=== PATIENT | male | born 1950 | race Caucasian/White ===

== ENCOUNTER 2023-03-10 14:22 | Inpatient (IN) | payer MEDICARE ==
[~2023-03-10] VITALS: Ht 177.8 cm; Wt 83.6 kg
[2023-03-10] MEDS ORDERED: NS IV 1000 ML 1,000 ML IV STA ×2 (14:59→16:08)
[2023-03-10] MEDS ORDERED: ONDANSETRON 4 MG/2 ML (SDV) Z0FRAN IVP ONE (15:00)
--- NOTE | 2023-03-10 15:04 | ED Abdominal Pain ---
General Chief Complaint: Abdominal/GI Problems Stated Complaint: EPIGASTRIC/BACK PAIN; NAUSEA Nursing Triage Note: PT AMBULATE TO ROOM [facility] WITHOUT DIFFICULTY WITH C/O ABD PAIN AND BACK PAIN. Source of Information: Patient Exam Limitations: No Limitations History of Present Illness Date Seen by Provider: Mar 10, 2023 Time Seen by Provider: 14:45 Initial Comments 72-year-old male presents to the emergency room today for epigastric pain. He woke up with the pain at about 730 this morning described as stabbing with radiation to his mid back. He has never had similar pains in the past though has had a recent complicated medical history with multiple ureteral stones, stents and infections. He had his stent removed recently. He denies any fevers but has had chills. He had a single episode of nausea with vomiting this morning. He also states he had a loose stool which was green in color. He does not drink alcohol, denies any history of pancreatitis. At present his pain is a 3/10. No aggravating or alleviating factors. No changes in urine currently. No cough chest pain or shortness of breath. All other systems reviewed and negative except documented per HPI. Voice recognition software was used to help create this chart Allergies and Home Medications Allergies Coded Allergies: No Known Drug Allergies (Unverified , 03/10/23) Patient Home Medication List Home Medication List Reviewed: Yes Review of Systems Review of Systems Constitutional: see HPI Past Bptsvjl-Srcbrw-Oinlbh Hx Patient Social History Tobacco Use?: No Smoking Status: Never a Smoker Smokeless Tobacco Frequency: Never a User Use of E-Cig and/or Vaping dev: No Use of E-Cig and/or Vaping Kailash: Never a User Substance use?: No Alcohol Use?: No Pt feels they are or have been: No Physical Exam Vital Signs Vital Signs - First Documented 03/10/23 14:25 Temp 37.0 Pulse 99 Resp 16 B/P (MAP) 161/92 (115) O2 Delivery Room Air Capillary Refill : Less Than 3 Seconds Height/Weight/BMI Height: '" Weight: lbs. oz. kg; BMI Method: General Appearance: WD/WN, no apparent distress HEENT: normal ENT inspection, pharynx normal Neck: full range of motion, normal inspection Respiratory: chest non-tender, lungs clear, normal breath sounds, no res piratory distress, no accessory muscle use Cardiovascular: no murmur, tachycardia Gastrointestinal: normal bowel sounds, soft, no organomegaly, tenderness (Tenderness palpation the epigastric region with voluntary guarding. No rebound tenderness. No mass organomegaly. No skin changes) Extremities: normal range of motion, non-tender, normal inspection, no pedal edema, no calf tenderness, normal capillary refill Back: normal inspection, no CVA tenderness, no vertebral tenderness Neurologic/Psychiatric: alert, normal mood/affect, oriented x 3 Skin: normal color, warm/dry Progress/Results/Core Measures Results/Orders Lab Results Laboratory Tests Test 03/10/23 14:58 03/10/23 16:15 Range/Units White Blood Count 8.5 4.3-11.0 10^3/uL Red Blood Count 5.21 4.30-5.52 10^6/uL Hemoglobin 15.3 13.3-17.7 g/dL Hematocrit 45 40-54 % Mean Corpuscular Volume 87 80-99 fL Mean Corpuscular Hemoglobin 29 25-34 pg Mean Corpuscular Hemoglobin Concent 34 32-36 g/dL Red Cell Distribution Width 14.0 10.0-14.5 % Platelet Count 255 130-400 10^3/uL Mean Platelet Volume 9.4 9.0-12.2 fL Immature Granulocyte % (Auto) 0 % Neutrophils (%) (Auto) 73 42-75 % Lymphocytes (%) (Auto) 19 12-44 % Monocytes (%) (Auto) 6 0-12 % Eosinophils (%) (Auto) 1 0-10 % Basophils (%) (Auto) 1 0-10 % Neutrophils # (Auto) 6.2 1.8-7.8 10^3/uL Lymphocytes # (Auto) 1.6 1.0-4.0 10^3/uL Monocytes # (Auto) 0.5 0.0-1.0 10^3/uL Eosinophils # (Auto) 0.1 0.0-0.3 10^3/uL Basophils # (Auto) 0.1 0.0-0.1 10^3/uL Immature Granulocyte # (Auto) 0.0 0.0-0.1 10^3/uL Sodium Level 140 135-145 MMOL/L Potassium Level 4.2 3.6-5.0 MMOL/L Chloride Level 102 98-107 MMOL/L Carbon Dioxide Level 24 21-32 MMOL/L Anion Gap 14 5-14 MMOL/L Blood Urea Nitrogen 17 7-18 MG/DL Creatinine 0.89 0.60-1.30 MG/DL Estimat Glomerular Filtration Rate 91 BUN/Creatinine Ratio 19 Glucose Level 120 H 70-105 MG/DL Calcium Level 9.7 8.5-10.1 MG/DL Corrected Calcium 9.6 8.5-10.1 MG/DL Total Bilirubin 0.4 0.1-1.0 MG/DL Aspartate Amino Transf (AST/SGOT) 19 5-34 U/L Alanine Aminotransferase (ALT/SGPT) 17 0-55 U/L Alkaline Phosphatase 123 40-136 U/L Troponin I < 0.30 <0.30 NG/ML Total Protein 6.9 6.4-8.2 GM/DL Albumin 4.1 3.2-4.5 GM/DL Lipase > 3000 H 8-78 U/L Urine Color YELLOW Urine Clarity CLEAR Urine pH 6.5 5-9 Urine Specific [place] 1.020 1.016-1.022 Urine Protein NEGATIVE NEGATIVE Urine Glucose (UA) NEGATIVE NEGATIVE Urine Ketones 1+ H NEGATIVE Urine Nitrite NEGATIVE NEGATIVE Urine Bilirubin NEGATIVE NEGATIVE Urine Urobilinogen 0.2 < = 1.0 MG/DL Urine Leukocyte Esterase NEGATIVE NEGATIVE Urine RBC (Auto) TRACE-I H NEGATIVE Urine RBC 2-5 H /HPF Urine WBC 2-5 /HPF Urine Squamous Epithelial Cells RARE /HPF Urine Crystals NONE /LPF Urine Bacteria NEGATIVE /HPF Urine Casts NONE /LPF Urine Mucus MODERATE H /LPF Urine Culture Indicated NO My Orders Orders - HUEY MENJIVAR DO Cbc With Automated Diff (03/10/23 14:59) Comprehensive Metabolic Panel (03/10/23 14:59) Lipase (03/10/23 14:59) Ua Culture If Indicated (03/10/23 14:59) Troponin I Fs (03/10/23 14:59) Ekg Tracing (03/10/23 14:59) Ns Iv 1000 Ml (Sodium Chloride 0.9%) (03/10/23 14:59) Ondansetron Injection (Zofran Injectio (03/10/23 15:00) Chest 1 View Ap/Pa Only (03/10/23 15:17) Ct Abdomen/Pelvis W (03/10/23 16:06) Ns Iv 1000 Ml (Sodium Chloride 0.9%) (03/10/23 16:08) Fentanyl Injection (Fentanyl Injection (03/10/23 16:30) Iohexol Injection (Omnipaque 350 Mg/Ml 1 (03/10/23 16:30) Received Contrast (Hold Metformin- Contr (03/10/23 16:30) Ns (Ivpb) 100 Ml (Sodium Chloride 0.9% 1 (03/10/23 16:30) Medications Given in ED Current Medications Medications Dose Ordered Sig/Rylee Route Start Time Stop Time Status Last Admin Dose Admin Fentanyl Citrate 50 mcg ONCE ONCE IVP 03/10/23 16:30 03/10/23 16:31 DC 03/10/23 16:32 50 MCG Iohexol 100 ml ONCE ONCE IV 03/10/23 16:30 03/10/23 16:31 DC 03/10/23 16:30 80 ML Ondansetron HCl 8 mg ONCE ONCE IVP 03/10/23 15:00 03/10/23 15:02 DC 03/10/23 15:09 8 MG Sodium Chloride 100 ml ONCE ONCE IV 03/10/23 16:30 03/10/23 16:31 DC 03/10/23 16:30 100 ML Vital Signs/I&O 03/10/23 14:25 Temp 37.0 Pulse 99 Resp 16 B/P (MAP) 161/92 (115) O2 Delivery Room Air Blood Pressure Mean: 115 Initial ECG Comparisson: No Previous ECG Available Comment Sinus rhythm with a rate of 89 bpm. Normal intervals. Left axis deviation. T wave inversions in lead III. Prominent Q waves in lead III and aVF. No other ST or T wave abnormalities. No ectopy. No STEMI. Departure Communication (Admissions) Notified by lab that the patient's lipase was too high to read for our analyzer, had to be diluted. Started on IV fluids and offered pain medication, initially declined but later comes back in request something for pain. He has been given Zofran and has no more nausea. Spoke to Dr. Olivera and she requested CT scan prior to admission to rule out pseudocyst. CT scan is negative for pseudocyst. He will be transferred via private vehicle. Advised patient and his to not eat or drink anything and to present straight to [facility] [place] in [place]. They state understanding. Transferred in stable condition. 1600: Spoke to Dr Olivera, request CT scan to r/o psuedocyst. Pending at this time. Has had 1 L of IV fluids. Declined pain medicine. Will go ahead and started on another liter of IV fluids while awaiting the CT scan. Impression Primary Impression: Pancreatitis Qualified Codes: K85.90 - Acute pancreatitis without necrosis or infection, unspecified Disposition: 30 STILL A PATIENT Condition: Stable Departure-Patient Inst. Referrals: CHRIST BRADLEY APRN (PCP) Primary Care Physician [facility] (Family) Primary Care Physician HUEY MENJIVAR DO Mar 10, 2023 15:04
[2023-03-10 15:05] LABS: BASOPHILS # (AUTO) 0.1 10^3/uL (0.0-0.1); BASOPHILS % (AUTO) 1 % (0-10); EOSINOPHILS # (AUTO) 0.1 10^3/uL (0.0-0.3); EOSINOPHILS % (AUTO) 1 % (0-10); HEMATOCRIT 45 % (40-54); HEMOGLOBIN 15.3 g/dL (13.3-17.7); LYMPHOCYTES # (AUTO) 1.6 10^3/uL (1.0-4.0); LYMPHOCYTES % (AUTO) 19 % (12-44); MEAN CORPUSCULAR HEMOGLOBIN 29 pg (25-34); MEAN CORPUSCULAR HGB CONC 34 g/dL (32-36); MEAN CORPUSCULAR VOLUME 87 fL (80-99); MEAN PLATELET VOLUME 9.4 fL (9.0-12.2); MONOCYTES # (AUTO) 0.5 10^3/uL (0.0-1.0); MONOCYTES % (AUTO) 6 % (0-12); NEUTROPHILS # (AUTO) 6.2 10^3/uL (1.8-7.8); NEUTROPHILS % (AUTO) 73 % (42-75); PLATELET COUNT 255 10^3/uL (130-400); WHITE BLOOD COUNT 8.5 10^3/uL (4.3-11.0)
[2023-03-10 15:27] LABS: CHLORIDE 102 MMOL/L (98-107); POTASSIUM 4.2 MMOL/L (3.6-5.0); SODIUM 140 MMOL/L (135-145)
[2023-03-10 15:28] LABS: ALANINE AMINOTRANSFERASE 17 U/L (0-55); ALBUMIN 4.1 GM/DL (3.2-4.5); ALKALINE PHOSPHATASE 123 U/L (40-136); BILIRUBIN,TOTAL 0.4 MG/DL (0.1-1.0); BUN/CREATININE RATIO 19; CALCIUM 9.7 MG/DL (8.5-10.1); CARBON DIOXIDE 24 MMOL/L (21-32); CREATININE SERUM 0.89 MG/DL (0.60-1.30); GFR ESTIMATED 91; GLUCOSE 120 MG/DL (70-105); TOTAL PROTEIN 6.9 GM/DL (6.4-8.2)
[2023-03-10 16:16] LABS: LIPASE > 3000 U/L (8-78)
[2023-03-10] MEDS ORDERED: fentaNYL INJECTION 100 MCG/2 ML VIAL IVP ONE (16:30)
[2023-03-10] MEDS ORDERED: NS 100 ML (IVPB) BAG IV ONE (16:30)
[2023-03-10] MEDS ORDERED: IOHEXOL 350 MG/ML 100 ML (OMNIPAQUE 350) VIAL IV ONE (16:30)
[2023-03-10] MEDS ORDERED: HOLD METFORMIN - RECEIVED CONTRAST 20 ML VIAL IV SCH (16:30)
--- NOTE | 2023-03-10 16:43 | Diagnostic Imaging Report ---
INDICATION: Abdominal pain. TECHNIQUE: A frontal chest was obtained at 4:37 PM. FINDINGS: The heart and mediastinal silhouette are normal in appearance. There is some minimal bibasilar scarring or atelectasis. There is no consolidation, pneumothorax, or pleural fluid. IMPRESSION: Minimal bilateral scarring or atelectasis with no focal infiltrate, pneumothorax, or pleural fluid. Dictated by: Dictated on workstation # [id number]
[2023-03-10 16:50] LABS: BILIRUBIN,URINE NEGATIVE (NEGATIVE); CLARITY,URINE CLEAR; COLOR,URINE YELLOW; GLUCOSE, URINE (UA) NEGATIVE (NEGATIVE); KETONES,URINE 1+ (NEGATIVE); LEUKOCYTE ESTERASE ,URINE NEGATIVE (NEGATIVE); NITRITE,URINE NEGATIVE (NEGATIVE); PH,URINE 6.5 (5-9); PROTEIN,URINE NEGATIVE (NEGATIVE)
--- NOTE | 2023-03-10 16:54 | Diagnostic Imaging Report ---
INDICATION: Abdominal pain, back pain. TECHNIQUE: Multiple contiguous axial images were obtained through the abdomen and pelvis after administration of intravenous contrast. Auto Exposure Controls were utilized during the CT exam to meet ALARA standards for radiation dose reduction. All CT scans use one or more of the following dose optimizing techniques: automated exposure control, MA and/or KvP adjustment based on patient size and exam type or iterative reconstruction. COMPARISON: There is no prior study for comparison. FINDINGS: The visualized portions of the lung bases show no infiltrate. There is a small pulmonary nodule in the left lower lobe near the aorta, measuring about 8 mm. There is no pleural fluid or free intraperitoneal air. There are diffuse degenerative changes in the lumbar spine, most prominent at L2-L3 with no erosive bony lesion. The liver shows a small cyst in the right lobe superiorly and a small cyst in the left lobe. There is no suspicious liver lesion. The gallbladder appears unremarkable. The spleen appears unremarkable. The pancreas shows some prominence of the pancreatic duct down to the region of the pancreatic head. There is some ill-defined low-density change in the pancreatic head which may represent mild pancreatitis. There is no biliary dilatation. There is a calcification in the pancreatic head which may represent a ductal stone. There are bilateral benign-appearing renal cysts as well as nonocclusive stones in the right kidney. There is bilateral adrenal thickening with nodules on both sides, the left-sided nodule measured about 2.4 x 1.6 cm and the right measured about 1.8 x 2.1 cm. There is no retroperitoneal mass or adenopathy. There is atherosclerotic change of the aorta with abdominal aortic aneurysm, nonruptured, measuring about 3.7 x 3.4 cm. There is no pelvic mass or free fluid. There is some prostatic enlargement with bladder wall thickening. IMPRESSION: There are bilateral renal cysts and small cysts in the liver. There are bilateral adrenal nodules which may represent adenomas, consider follow-up to exclude growth. There is prominence of the pancreatic duct with possible pancreatic duct stone, consider MRCP for further evaluation. There is some ill-defined hypodensity in the pancreatic head which may represent early inflammatory change. There is a nonruptured abdominal aortic aneurysm measuring 3.7 cm in greatest diameter. There are degenerative changes in the lumbar spine. There is an 8 mm pulmonary nodule in the left lower lobe, per Fleischner criteria would recommend three-month follow-up. Dictated by: Dictated on workstation # [id number]
[2023-03-10 16:56] LABS: BACTERIA,URINE NEGATIVE /HPF; SQUAMOUS EPITHELIAL CELL,UR RARE /HPF
[2023-03-10 18:11] VITALS: BP 162/87
[2023-03-10] MEDS ORDERED: ONDANSETRON 4 MG/2 ML (SDV) Z0FRAN IV PRN (18:15)
[2023-03-10] MEDS ORDERED: LACTULOSE SYRUP 10GM/15ML 30ML UDC PO PRN (18:15)
[2023-03-10] MEDS ORDERED: diphenhydrAMINE INJ 50 MG/ML VIAL IVP PRN (18:15)
[2023-03-10] MEDS ORDERED: ONDANSETRON 4 MG (ZOFRAN) ORAL DISSOLVE TAB PO PRN (18:15)
[2023-03-10] MEDS ORDERED: MELATONIN 3 MG TABLET PO PRN (18:15)
[2023-03-10] MEDS ORDERED: BISACODYL 10 MG SUPPOSITORY PR PRN (18:15)
[2023-03-10] MEDS ORDERED: LORazepam 0.5 MG TABLET PO PRN (18:15)
[2023-03-10] MEDS ORDERED: polyethylene glycoL POWDER 17 GM (MIRALAX) PACK PO PRN (18:15)
[2023-03-10] MEDS ORDERED: ANTACID SUSP 30 ML UDC (MYLANTA) PO PRN (18:15)
[2023-03-10] MEDS ORDERED: diphenhydrAMINE 25 MG TABLET PO PRN (18:15)
[2023-03-10] MEDS ORDERED: HYDROmorphone INJECTION 2 MG/ML VIAL IV PRN ×2 (18:15→20:15)
[2023-03-10] MEDS: ENOXAPARIN 40 MG/0.4 ML SYRINGE SC SCH (18:50)
[2023-03-10] MEDS: NS IV 1000 ML 1,000 ML IV SCH (18:53)
--- NOTE | 2023-03-10 19:04 | History & Physical ---
History of Present Illness HPI/Chief Complaint Chief complaint: Acute abdominal pain due to acute pancreatitis HPI: This is a 72-year-old male who presented to the [facility] ER with acute abdominal pain found to have acute pancreatitis. CT scan revealed possible stone but needs MRCP to fully evaluate. Currently his pain is 6/10. at the bedside. He is a nondrinker of alcohol and he does not smoke. He does have a gallbladder. Pain medication will be given along with IV fluids and I have consulted Dr. Smith. To note he recently had multiple kidney stones requiring urology intervention at [facility] with stent placement which was just removed last week. Source: patient, family, RN/MD, old records Exam Limitations: no limitations Date Seen 03/10/23 Time Seen by a Provider: 19:00 Attending Physician Tayler Xie Aprn PCP Admitting Physician: Ana Olivera DO Attending Physician: Ana Olivera DO Referring Physician Date of Admission Mar 10, 2023 at 18:00 Home Medications & Allergies Home Medications Reviewed patient Home Medication Reconciliation performed by pharmacy medication reconciliations electrical laboratory technician and/or nursing. Patients Allergies have been reviewed. Allergies Allergies Coded Allergies No Known Drug Allergies (Unverified03/10/23) Past Uagaqdy-Cgitkm-Cttqqv Hx Past Med/Social Hx: Reviewed Nursing Past Med/Soc Hx, Reviewed and Corrections made Patient Social History Marrital Status: Employed/Student: retired Alcohol Use: Denies Use Smoking Status: Former Smoker Recent Foreign Travel: No Contact w/other who traveled: No Past Medical History Genitourinary: Kidney Stones Review of Systems Constitutional: see HPI, malaise, weakness Gastrointestinal: abdominal pain, loss of appetite, nausea, vomiting Physical Exam Physical Exam Vital Signs Vital Signs - First Documented 03/10/23 03/10/23 03/10/23 14:25 17:08 19:07 Temp 37.0 Pulse 99 Resp 16 B/P (MAP) 161/92 (115) Pulse Ox 97 O2 Delivery Room Air FiO2 21 Capillary Refill : Less Than 3 Seconds Height, Weight, BMI Height: '" Weight: lbs. oz. kg; 25.30 BMI Method: General Appearance: WD/WN, Anxious, Mild Distress Eyes: Bilateral Eye Normal Inspection, Bilateral Eye PERRL HEENT: PERRL/EOMI, Normal ENT Inspection, Pharynx Normal Neck: Full Range of Motion, Normal Inspection, Non Tender, Supple, Carotid Brui t Respiratory: Chest Non Tender, Lungs Clear, Normal Breath Sounds, No Accessory Muscle Use, No Respiratory Distress Cardiovascular: Regular Rate, Rhythm, No Edema, No Gallop, No JVD, No Murmur, Normal Peripheral Pulses Gastrointestinal: Normal Bowel Sounds, No Organomegaly, No Pulsatile Mass, Soft, Tenderness Back: Normal Inspection, No CVA Tenderness, No Vertebral Tenderness Extremity: Normal Capillary Refill, Normal Inspection, Normal Range of Motion, Non Tender, No Calf Tenderness, No Pedal Edema Neurologic/Psychiatric: Alert, Oriented x3, No Motor/Sensory Deficits, Normal Mood/Affect Skin: Normal Color, Warm/Dry Lymphatic: No Adenopathy Results Results/Procedures Labs Laboratory Tests 03/10/23 14:58 03/11/23 05:10 Patient resulted labs reviewed. Assessment/Plan Admission Diagnosis Assessment: Acute pancreatitis Abdominal pain Recent kidney stone stent placement and removal Plan: Consult Dr. Smith PPI Antiemetics Pain meds Abdominal ultrasound MRCP Admission Status: Observation ANA OLIVERA DO Mar 10, 2023 19:04
[2023-03-10 19:07] VITALS: BP 162/87
[2023-03-10] MEDS ORDERED: PANTOPRAZOLE 40 MG (PROTONIX) VIAL IV NR (19:30)
[2023-03-10] MEDS: oxyCODONE IMMEDIATE RELEASE 5 MG TABLET PO PRN (19:39)
[2023-03-10] MEDS: ACETAMINOPHEN 325 MG TABLET PO PRN (19:40)
[2023-03-10 20:00] VITALS: BP 175/89
[2023-03-10] MEDS: DOCUSATE SODIUM 100 MG CAPSULE PO SCH (20:56)
[2023-03-10] MEDS: inSUlin ASPART 1 UNIT/0.01 ML (PER UNIT) SC SCH (20:57)
[2023-03-10 23:24] VITALS: BP 151/72
[2023-03-11] MEDS: oxyCODONE IMMEDIATE RELEASE 5 MG TABLET PO PRN (02:47)
[2023-03-11] MEDS: ACETAMINOPHEN 325 MG TABLET PO PRN (02:48)
[2023-03-11] MEDS: NS IV 1000 ML 1,000 ML IV SCH ×5 (02:48→19:50)
[2023-03-11 03:53] VITALS: BP 123/65
[2023-03-11] MEDS: inSUlin ASPART 1 UNIT/0.01 ML (PER UNIT) SC SCH ×4 (05:28→21:20)
[2023-03-11 05:31] LABS: BASOPHILS # (AUTO) 0.1 10^3/uL (0.0-0.1); BASOPHILS % (AUTO) 1 % (0-10); EOSINOPHILS # (AUTO) 0.2 10^3/uL (0.0-0.3); EOSINOPHILS % (AUTO) 2 % (0-10); HEMATOCRIT 39 % (40-54); HEMOGLOBIN 12.9 g/dL (13.3-17.7); LYMPHOCYTES # (AUTO) 1.6 10^3/uL (1.0-4.0); LYMPHOCYTES % (AUTO) 19 % (12-44); MEAN CORPUSCULAR HEMOGLOBIN 29 pg (25-34); MEAN CORPUSCULAR HGB CONC 33 g/dL (32-36); MEAN CORPUSCULAR VOLUME 89 fL (80-99); MEAN PLATELET VOLUME 10.1 fL (9.0-12.2); MONOCYTES # (AUTO) 0.7 10^3/uL (0.0-1.0); MONOCYTES % (AUTO) 8 % (0-12); NEUTROPHILS # (AUTO) 5.7 10^3/uL (1.8-7.8); NEUTROPHILS % (AUTO) 70 % (42-75); PLATELET COUNT 219 10^3/uL (130-400); WHITE BLOOD COUNT 8.1 10^3/uL (4.3-11.0)
[2023-03-11 05:59] LABS: ALBUMIN 3.4 GM/DL (3.2-4.5); BILIRUBIN,TOTAL 0.7 MG/DL (0.1-1.0); CALCIUM 8.5 MG/DL (8.5-10.1); CREATININE SERUM 0.78 MG/DL (0.60-1.30); POTASSIUM 3.6 MMOL/L (3.6-5.0); TOTAL PROTEIN 5.7 GM/DL (6.4-8.2)
[2023-03-11 07:20] VITALS: BP 125/70
--- NOTE | 2023-03-11 07:55 | Consultation - Surgery ---
LIA GRACE 03/11/23 0755: History of Present Illness History of Present Illness Patient Consulted On(dago/time) 03/11/23 07:53 Time Seen by Provider: 08:13 History of Present Illness 72 M px to the clinic for stomach and back pain. He states that he has been intermittently nauseous since last night, but at the moment he feels pretty good. He had one episode of vomiting yesterday around noon. He denies having blood in his vomit. He said it was a clear/white liquid and some chunks from his breakfast sandwiches. He denies any green or brown color in his vomit. His stomach pain woke him up yesterday around 7:30 am. It was in his RUQ and LUQ. The pain was not sharp pain, it was described as a discomfort, aching feeling. When he came into the clinic he would rate the pain as a 7/10, but currently he is in no pain. The stomach pain yesterday would radiate to the middle of his back. He is currently hungry. His last meal was mid-morning yesterday, two little breakfast sandwiches. He has not ate since being in the hospital. He denies having similar episodes like this before. He denies any previous episodes of pancreatitis. He states he drinks zero alcohol. He is a former smoker, he quit last november. He would smoke less than a pack a day for 50 years. His gallblader and appendix are in tact. He denies having a past EGD. He has never had a colonoscopy. He has never had a HIDA scan. He had an ultrasound performed this morning around 8:00am. Pt denies having any gallbladder or pancreatic problems in the past. His only home medication is Flomax, he is not sure the dosage but he takes one pill a day. He started taking this medication when his kidney problems started a few months back. He was started on this in the ED at [facility] in [place] and has been taking it since. Pt states that he had a ureter stent placed 7 weeks ago at [facility]. Pt states that he had a shockwave lithotrypsin to break up one big kidney stone 3-4 weeks ago at [facility]. He denies any other procedures or surgeries performed. Allergies and Home Medications Allergies Coded Allergies: Penicillins (Verified Allergy, Unknown, 03/11/23) Mother and Father were allergic to it. He states he has not had it since a child due to the adverse rxn Past Ygwttoc-Ijeiya-Eihjrz Hx Patient Social History Smoking Status: Former Smoker (3/4 a pack for 50 years. Quit in November,.) Type Used: Cigarettes 2nd Hand Smoke Exposure: No Recent Hopitalizations: Yes (2 kidney procedures in the last two months.) Alcohol Use?: No Surgeries History of Surgeries: Yes (ureter stent placed, 2022) Respiratory History of Respiratory Disorde: No Cardiovascular History of Cardiac Disorders: No Neurological History of Neurological Disord: No Reproductive System Hx Reproductive Disorders: No Sexually Transmitted Disease: No HIV/AIDS: No Genitourinary History of Genitourinary Disor: Yes Genitourinary Disorders: Kidney Stones Gastrointestinal History of Gastrointestinal Di: No Musculoskeletal History of Musculoskeletal Dis: No Endocrine History of Endocrine Disorders: No HEENT History of HEENT Disorders: No Cancer History of Cancer: No Review of Systems-General Constitutional: No chills; dizziness (intermittently when laying down, right before falling asleep); No fever, No weakness, No weight gain, No weight loss EENTM: No hearing loss, No ear pain, No blurred vision, No double vision, No eye pain, No vision loss Respiratory: cough, phlegm; No short of breath, No wheezing Cardiovascular: No chest pain, No edema, No palpitations Gastrointestinal: abdominal pain (RUQ, LUQ), constipation; No diarrhea, No dysphagia, No heartburn, No jaundice, No loss of appetite; nausea; No vomiting Genitourinary: No dysuria, No frequency, No hesitancy, No incontinence Psychiatric/Neurological: Denies Headache, Denies Numbness, Denies Tingling, Denies Tremors Physical Exam-General Problems Physical Exam Vital Signs Vital Signs - First Documented 03/10/23 03/10/23 03/10/23 14:25 17:08 19:07 Temp 37.0 Pulse 99 Resp 16 B/P (MAP) 161/92 (115) Pulse Ox 97 O2 Delivery Room Air FiO2 21 Capillary Refill : Less Than 3 Seconds General Appearance: no apparent distress Eyes: Bilateral Eye PERRL, Bilateral Eye EOMI HEENT: No scleral icterus (R), No scleral icterus (L), No photophobia Respiratory: chest non-tender, lungs clear, normal breath sounds, no respiratory distress Cardiovascular: regular rate, rhythm, no murmur Peripheral Pulses: 2+ Carotid (R), 2+ Carotid (L), 2+ Dorsalis Pedis (R), 2+ Left Dors-Pedis (L), 2+ Radial Pulses (R), 2+ Radial Pulses (L) Gastrointestinal: non tender, soft, abnormal bowel sounds (All 4 Qs have hyperactive sounds); No guarding, No rebound, No tenderness Neurologic/Psychiatric: no motor/sensory deficits, alert, normal mood/affect, oriented x 3 Skin: normal color, warm/dry Data Review Labs Laboratory Tests 03/10/23 14:58: White Blood Count 8.5, Red Blood Count 5.21, Hemoglobin 15.3, Hematocrit 45, Mean Corpuscular Volume 87, Mean Corpuscular Hemoglobin 29, Mean Corpuscular Hemoglobin Concent 34, Red Cell Distribution Width 14.0, Platelet Count 255, Mean Platelet Volume 9.4, Immature Granulocyte % (Auto) 0, Neutrophils (%) (Auto) 73, Lymphocytes (%) (Auto) 19, Monocytes (%) (Auto) 6, Eosinophils (%) (Auto) 1, Basophils (%) (Auto) 1, Neutrophils # (Auto) 6.2, Lymphocytes # (Auto) 1.6, Monocytes # (Auto) 0.5, Eosinophils # (Auto) 0.1, Basophils # (Auto) 0.1, Immature Granulocyte # (Auto) 0.0, Sodium Level 140, Potassium Level 4.2, Chloride Level 102, Carbon Dioxide Level 24, Anion Gap 14, Blood Urea Nitrogen 17, Creatinine 0.89, Estimat Glomerular Filtration Rate 91, BUN/Creatinine Ratio 19, Glucose Level 120H, Calcium Level 9.7, Corrected Calcium 9.6, Total Bilirubin 0.4, Aspartate Amino Transf (AST/SGOT) 19, Alanine Aminotransferase (ALT/SGPT) 17, Alkaline Phosphatase 123, Troponin I < 0.30, Total Protein 6.9, Albumin 4.1, Lipase > 3000H 03/10/23 16:15: Urine Color YELLOW, Urine Clarity CLEAR, Urine pH 6.5, Urine Specific [place] 1.020, Urine Protein NEGATIVE, Urine Glucose (UA) NEGATIVE, Urine Ketones 1+H, Urine Nitrite NEGATIVE, Urine Bilirubin NEGATIVE, Urine Urobilinogen 0.2, Urine Leukocyte Esterase NEGATIVE, Urine RBC (Auto) TRACE-IH, Urine RBC 2-5H, Urine WBC 2-5, Urine Squamous Epithelial Cells RARE, Urine Crystals NONE, Urine Bacteria NEGATIVE, Urine Casts NONE, Urine Mucus MODERATEH, Urine Culture Indicated NO 03/10/23 20:23: Glucometer 97 03/11/23 05:10: White Blood Count 8.1, Red Blood Count 4.40, Hemoglobin 12.9L, Hematocrit 39L, Mean Corpuscular Volume 89, Mean Corpuscular Hemoglobin 29, Mean Corpuscular Hemoglobin Concent 33, Red Cell Distribution Width 14.2, Platelet Count 219, Mean Platelet Volume 10.1, Immature Granulocyte % (Auto) 0, Neutrophils (%) (Auto) 70, Lymphocytes (%) (Auto) 19, Monocytes (%) (Auto) 8, Eosinophils (%) (Auto) 2, Basophils (%) (Auto) 1, Neutrophils # (Auto) 5.7, Lymphocytes # (Auto) 1.6, Monocytes # (Auto) 0.7, Eosinophils # (Auto) 0.2, Basophils # (Auto) 0.1, Immature Granulocyte # (Auto) 0.0, Sodium Level 139, Potassium Level 3.6, Chloride Level 109H, Carbon Dioxide Level 23, Anion Gap 7, Blood Urea Nitrogen 15, Creatinine 0.78, Estimat Glomerular Filtration Rate 95, BUN/Creatinine Ratio 19, Glucose Level 89, Calcium Level 8.5, Corrected Calcium 9.0, Total Bilirubin 0.7, Aspartate Amino Transf (AST/SGOT) 14, Alanine Aminotransferase (ALT/SGPT) 14, Alkaline Phosphatase 84, Total Protein 5.7L, Albumin 3.4, Lipase 1906H 03/11/23 05:16: Glucometer 92 Radiology Date of Exam:03/10/23 CT ABDOMEN/PELVIS W INDICATION: Abdominal pain, back pain. TECHNIQUE: Multiple contiguous axial images were obtained through the abdomen and pelvis after administration of intravenous contrast. Auto Exposure Controls were utilized during the CT exam to meet ALARA standards for radiation dose reduction. All CT scans use one or more of the following dose optimizing techniques: automated exposure control, MA and/or KvP adjustment based on patient size and exam type or iterative reconstruction. COMPARISON: There is no prior study for comparison. FINDINGS: The visualized portions of the lung bases show no infiltrate. There is a small pulmonary nodule in the left lower lobe near the aorta, measuring about 8 mm. There is no pleural fluid or free intraperitoneal air. There are diffuse degenerative changes in the lumbar spine, most prominent at L2-L3 with no erosive bony lesion. The liver shows a small cyst in the right lobe superiorly and a small cyst in the left lobe. There is no suspicious liver lesion. The gallbladder appears unremarkable. The spleen appears unremarkable. The pancreas shows some prominence of the pancreatic duct down to the region of the pancreatic head. There is some ill-defined low-density change in the pancreatic head which may represent mild pancreatitis. There is no biliary dilatation. There is a calcification in the pancreatic head which may represent a ductal stone. There are bilateral benign-appearing renal cysts as well as nonocclusive stones in the right kidney. There is bilateral adrenal thickening with nodules on both sides, the left-sided nodule measured about 2.4 x 1.6 cm and the right measured about 1.8 x 2.1 cm. There is no retroperitoneal mass or adenopathy. There is atherosclerotic change of the aorta with abdominal aortic aneurysm, nonruptured, measuring about 3.7 x 3.4 cm. There is no pelvic mass or free fluid. There is some prostatic enlargement with bladder wall thickening. IMPRESSION: There are bilateral renal cysts and small cysts in the liver. There are bilateral adrenal nodules which may represent adenomas, consider follow-up to exclude growth. There is prominence of the pancreatic duct with possible pancreatic duct stone, consider MRCP for further evaluation. There is some ill-defined hypodensity in the pancreatic head which may represent early inflammatory change. There is a nonruptured abdominal aortic aneurysm measuring 3.7 cm in greatest diameter. There are degenerative changes in the lumbar spine. There is an 8 mm pulmonary nodule in the left lower lobe, per Fleischner criteria would recommend three-month follow-up. Assessment/Plan Assessment/Plan Assessment/Plan Assessment; Acute Pancreatitis History of Kidney Stones Former Smoker Plan; Will discuss having MRCP performed, pending on US results. Will continue IV fluids and continue being NPO. Pts lipase is trending downwards, will continue to monitor that. ZULEYKA JAMES DO 03/11/23 1156: History of Present Illness History of Present Illness Time Seen by Provider: 11:17 History of Present Illness Surgery asked to consult regarding Acute Pancreatitis. HPI per ED: 72-year-old male presents to the emergency room today for epigastric pain. He woke up with the pain at about 730 this morning described as stabbing with radiation to his mid back. He has never had similar pains in the past though has had a recent complicated medical history with multiple ureteral stones, stents and infections. He had his stent removed recently. He denies any fevers but has had chills. He had a single episode of nausea with vomiting this morning. He also states he had a loose stool which was green in color. He does not drink alcohol, denies any history of pancreatitis. At present his pain is a 3/10. No aggravating or alleviating factors. No changes in urine currently. No cough chest pain or shortness of breath. When I spoke to pt this morning he was not in pain and wanted to eat. He stated he has never had any RUQ pain or abdominal pain; nothing resembling previous gallbladder attacks. He described the pain as sharp, stabbing that went right through to his back. Allergies and Home Medications Allergies Coded Allergies: Penicillins (Verified Allergy, Unknown, 03/11/23) Mother and Father were allergic to it. He states he has not had it since a child due to the adverse rxn Patient Home Medication List Home Medication List Reviewed: Yes Past Zhpbmhq-Vgexdw-Khnzut Hx Patient Social History Smoking Status: Former Smoker (3/4 a pack for 50 years. Quit in November,.) Type Used: Cigarettes 2nd Hand Smoke Exposure: No Recent Hopitalizations: Yes (2 kidney procedures in the last two months.) Alcohol Use?: No Surgeries History of Surgeries: Yes (ureter stent placed, 2022) Respiratory History of Respiratory Disorde: No Cardiovascular History of Cardiac Disorders: No Neurological History of Neurological Disord: No Reproductive System Hx Reproductive Disorders: No Sexually Transmitted Disease: No HIV/AIDS: No Genitourinary History of Genitourinary Disor: Yes Genitourinary Disorders: Kidney Stones Gastrointestinal History of Gastrointestinal Di: No Musculoskeletal History of Musculoskeletal Dis: No Endocrine History of Endocrine Disorders: No HEENT History of HEENT Disorders: No Cancer History of Cancer: No Psychosocial History of Psychiatric Problem: No Integumentary History of Skin or Integumenta: No Family Medical History Significant Family History: Other Conditions/Hx (Denied either parent had DM) Review of Systems-General Constitutional: No chills; dizziness (intermittently when laying down, right before falling asleep); No fever, No weakness, No weight gain, No weight loss EENTM: No hearing loss, No blurred vision, No double vision, No eye pain, No vision loss Respiratory: cough, phlegm; No short of breath, No wheezing Cardiovascular: No chest pain, No edema, No palpitations Gastrointestinal: abdominal pain (RUQ, LUQ), constipation; No diarrhea, No dysphagia, No heartburn, No jaundice, No loss of appetite; nausea, vomiting Genitourinary: No dysuria, No frequency, No hematuria, No incontinence Musculoskeletal: No joint pain, No joint swelling Skin: No change in color, No change in hair/nails Psychiatric/Neurological: Denies Headache, Denies Numbness, Denies Tingling, D enies Tremors Physical Exam-General Problems Physical Exam General Appearance: WD/WN, no apparent distress Eyes: Bilateral Eye PERRL, Bilateral Eye EOMI HEENT: pharynx normal; No scleral icterus (R), No scleral icterus (L), No photophobia Neck: non-tender, supple Respiratory: lungs clear, normal breath sounds, no respiratory distress, no accessory muscle use Cardiovascular: regular rate, rhythm, no murmur Gastrointestinal: non tender, soft, abnormal bowel sounds (All 4 Qs have hyperactive sounds); No guarding, No rebound; hernia (incarcerated umbilical hernia (small amount of fat - pushes in, but comes right back out)) Rectal: deferred Back: no CVA tenderness, no vertebral tenderness Extremities: no pedal edema, no calf tenderness, normal capillary refill Neurologic/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 TECHNIQUE: Multiple realtime grayscale images were obtained over the abdomen in various projections. INDICATION: Abdominal pain. COMPARISON: CT abdomen and pelvis of 03/10/2023. FINDINGS: The liver is normal in size and echogenicity. There is no focal hepatic mass. The main portal vein is patent with antegrade flow. The gallbladder is distended without gallstones, wall thickening, or pericholecystic fluid. The common bile duct measures up to 0.5 cm in diameter. No intrahepatic biliary dilation. The visualized portions of the pancreas are normal. Portions of the head and tail are obscured by overlying bowel gas. The right kidney is normal in size. No hydronephrosis, shadowing calculi, or suspicious mass lesion. Simple cyst in the right kidney is stable. Infrarenal abdominal aortic aneurysm measuring 2.3 cm is better seen on yesterday's CT. IMPRESSION: 1. No cholelithiasis or biliary obstruction. 2. No common bile duct stone by ultrasound. 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 Olivera regarding this case and went over the films (US and CT) myself. I don't see any stones in the gallbladder on either radiology exam; will wait for reading from MRCP. Pt will need increased IV fluids and continue being NPO. Pts lipase is trending downwards, will continue to monitor that. I talked to pt about normal management of the Pancreatitis; first is NPO and IV fluids, next possible Lap Celina with IOC and he will definitely need an ERCP. I told him I could see the stone blocking his pancreatic duct and the fact that the duct is very dilated; normally not seen except with chronic pancreatitis. We talked about the fact that he doesn't need gallbladder removal right away (if ever) because there aren't any stones in the gallbladder that could cause another blockage. However, that doesn't mean that he won't develop another stone in the gallbladder in the future. We will discuss this more as an outpt. He will need to wait until the Lipase is almost normal and then will need to be sent for ERCP. I had a hard time seeing the stone on MRCP; await final reading. I explained to him what an ERCP entailed and talked about the fact that he will need a GI specialist to do it. All questions answered to his satisfaction. Supervisory-Addendum Brief Verification & Attestation Participated in pt care: history, MDM, physical Personally performed: exam, history, MDM, supervision of care Care discussed with: Medical Student Procedures: n/a Verification and Attestation of Medical Student E/M Service A medical student performed and documented this service. I then reviewed and verified all information documented by the medical student and made modifications to such information, when appropriate. I personally performed a physical exam, medical decision making and then discussed any differences between the notes and made revisions as necessary to create one note. Zuleyka James , 03/11/23 , 12:03 LIA GRACE Mar 11, 2023 07:55 ZULEYKA JAMES DO Mar 11, 2023 11:56
[2023-03-11] MEDS: DOCUSATE SODIUM 100 MG CAPSULE PO SCH ×2 (08:30→19:49)
[2023-03-11] MEDS: PANTOPRAZOLE 40 MG (PROTONIX) VIAL IV SCH (08:30)
--- NOTE | 2023-03-11 10:21 | Progress Note ---
RENETTA BREWER 03/11/23 1021: Subjective Date Seen by a Provider: Mar 11, 2023 Time Seen by a Provider: 10:00 Subjective/Events-last exam CC: Abdominal pain HPI: 72-year-old male presented with acute abdominal pain and was found to have acute pancreatitis. He experienced stomach pain that woke him up at 7:30 am yesterday and described it as achey and uncomfortable. Pain was in RUQ & LUQ and radiated to his back. He was intermittently nauseous, but is currently fine and having no pain or nausea. A CT scan was performed and a stone may have been found. Patient does have gallbladder. An abdominal US was performed this morning (results pending), but an MCRP may be needed. He did vomit yesterday and denied having any blood in vomit. Has not eaten anything since yesterday morning and is very hungry. Patient has h/o multiple kidney stones w/ stent placement and stent was taken out last week. Has one home medication which is Flomax (did not know dosage; 1 pill daily). Takes it for his kidney problems. Review of Systems General: No Chills, No Night Sweats, No Fatigue, No Malaise HEENT: No Head Aches, No Eye Pain, No Ear Pain, No Dysphasia, No Sinus Congestion, No Post Nasal Drip, No Sore Throat Pulmonary: No Dyspnea; Cough; No Pleuritic Chest Pain, No Other Cardiovascular: No: Chest Pain, Palpitations, Orthopnea, Paroxysmal Noc. Dyspnea, Edema, Lt Headedness Gastrointestinal: Constipation; No: Nausea, Vomiting, Abdominal Pain, Diarrhea, Melena, Hematochezia, Other Genitourinary: No Dysuria, No Frequency, No Incontinence, No Hematuria, No Retention Musculoskeletal: No: other, neck pain, shoulder pain, arm pain, back pain, hand pain, leg pain, foot pain Neurological: Other (Dizziness when laying done); No: Weakness, Numbness, Incoordination, Change in speech, Confusion, Seizures Objective Exam Last Set of Vital Signs Vital Signs Date Time Temp Pulse Resp B/P (MAP) Pulse Ox O2 Delivery O2 Flow Rate FiO2 03/11/23 08:00 96 Room Air 03/11/23 07:20 36.6 52 19 125/70 (88) 03/10/23 19:07 21 Capillary Refill : Less Than 3 Seconds I&O Intake and Output 03/11/23 00:00 Intake Total 2350 ml Balance 2350 ml Intake Oral 350 ml IV Total 2000 ml # Voids 1 Daily Weight Change No General: Alert, Oriented X3, Cooperative, No Acute Distress HEENT: Atraumatic, PERRLA, EOMI, Mucous Memb Moist/[place] Lungs: Clear to Auscultation, Normal Air Movement Heart: Regular Rate, No Murmurs, Gallops Abdomen: Other (Hyperactive in all four quadrants) Extremities: No Clubbing, No Cyanosis, No Edema Neuro: Normal Speech Psych/Mental Status: Mental Status NL, Mood NL Results Lab Laboratory Tests 03/10/23 14:58: White Blood Count 8.5, Red Blood Count 5.21, Hemoglobin 15.3, Hematocrit 45, Mean Corpuscular Volume 87, Mean Corpuscular Hemoglobin 29, Mean Corpuscular Hemoglobin Concent 34, Red Cell Distribution Width 14.0, Platelet Count 255, Mean Platelet Volume 9.4, Immature Granulocyte % (Auto) 0, Neutrophils (%) (Auto) 73, Lymphocytes (%) (Auto) 19, Monocytes (%) (Auto) 6, Eosinophils (%) (Auto) 1, Basophils (%) (Auto) 1, Neutrophils # (Auto) 6.2, Lymphocytes # (Auto) 1.6, Monocytes # (Auto) 0.5, Eosinophils # (Auto) 0.1, Basophils # (Auto) 0.1, Immature Granulocyte # (Auto) 0.0, Sodium Level 140, Potassium Level 4.2, Chloride Level 102, Carbon Dioxide Level 24, Anion Gap 14, Blood Urea Nitrogen 17, Creatinine 0.89, Estimat Glomerular Filtration Rate 91, BUN/Creatinine Ratio 19, Glucose Level 120H, Calcium Level 9.7, Corrected Calcium 9.6, Total Bilirubin 0.4, Aspartate Amino Transf (AST/SGOT) 19, Alanine Aminotransferase (ALT/SGPT) 17, Alkaline Phosphatase 123, Troponin I < 0.30, Total Protein 6.9, Albumin 4.1, Lipase > 3000H 03/10/23 16:15: Urine Color YELLOW, Urine Clarity CLEAR, Urine pH 6.5, Urine Specific [place] 1.020, Urine Protein NEGATIVE, Urine Glucose (UA) NEGATIVE, Urine Ketones 1+H, Urine Nitrite NEGATIVE, Urine Bilirubin NEGATIVE, Urine Urobilinogen 0.2, Urine Leukocyte Esterase NEGATIVE, Urine RBC (Auto) TRACE-IH, Urine RBC 2-5H, Urine WBC 2-5, Urine Squamous Epithelial Cells RARE, Urine Crystals NONE, Urine Bacteria NEGATIVE, Urine Casts NONE, Urine Mucus MODERATEH, Urine Culture Indicated NO 03/10/23 20:23: Glucometer 97 03/11/23 05:10: White Blood Count 8.1, Red Blood Count 4.40, Hemoglobin 12.9L, Hematocrit 39L, Mean Corpuscular Volume 89, Mean Corpuscular Hemoglobin 29, Mean Corpuscular Hemoglobin Concent 33, Red Cell Distribution Width 14.2, Platelet Count 219, Mean Platelet Volume 10.1, Immature Granulocyte % (Auto) 0, Neutrophils (%) (Auto) 70, Lymphocytes (%) (Auto) 19, Monocytes (%) (Auto) 8, Eosinophils (%) (Auto) 2, Basophils (%) (Auto) 1, Neutrophils # (Auto) 5.7, Lymphocytes # (Auto) 1.6, Monocytes # (Auto) 0.7, Eosinophils # (Auto) 0.2, Basophils # (Auto) 0.1, Immature Granulocyte # (Auto) 0.0, Sodium Level 139, Potassium Level 3.6, Chloride Level 109H, Carbon Dioxide Level 23, Anion Gap 7, Blood Urea Nitrogen 15, Creatinine 0.78, Estimat Glomerular Filtration Rate 95, BUN/Creatinine Ratio 19, Glucose Level 89, Calcium Level 8.5, Corrected Calcium 9.0, Total Bilirubin 0.7, Aspartate Amino Transf (AST/SGOT) 14, Alanine Aminotransferase (ALT/SGPT) 14, Alkaline Phosphatase 84, Total Protein 5.7L, Albumin 3.4, Lipase 1906H 03/11/23 05:16: Glucometer 92 Assessment/Plan Assessment/Plan Assess & Plan/Chief Complaint Assessment: Acute pancreatitis Abdominal pain H/o multiple kidney stones with stent placement & stent removal Plan: Continue PPI Pain management Continue IVF & NPO status Monitor lipase MRCP if needed US results pending AAN NOE DO 03/12/23 0518: Supervisory-Addendum Brief Verification & Attestation Participated in pt care: history, MDM, physical Personally performed: exam, history, MDM, supervision of care Care discussed with: Medical Student Procedures: n/a Results interpretation: Verified all documentation Verification and Attestation of Medical Student E/M Service A medical student performed and documented this service in my presence. I reviewed and verified all information documented by the medical student and made modifications to such information, when appropriate. I personally performed the physical exam and medical decision making. Ana Noe, Mar 12, 2023,05:17 RENETTA BREWER Mar 11, 2023 10:21 ANA NOE DO Mar 12, 2023 05:18
[2023-03-11] MEDS ORDERED: GADOTERATE 0.5 MMOL/ML (CLARISCAN) 20 ML VIAL IV ONE (11:00)
--- NOTE | 2023-03-11 11:03 | Diagnostic Imaging Report ---
PROCEDURE: US Abdomen, limited. TECHNIQUE: Multiple realtime grayscale images were obtained over the abdomen in various projections. INDICATION: Abdominal pain. COMPARISON: CT abdomen and pelvis of 03/10/2023. FINDINGS: The liver is normal in size and echogenicity. There is no focal hepatic mass. The main portal vein is patent with antegrade flow. The gallbladder is distended without gallstones, wall thickening, or pericholecystic fluid. The common bile duct measures up to 0.5 cm in diameter. No intrahepatic biliary dilation. The visualized portions of the pancreas are normal. Portions of the head and tail are obscured by overlying bowel gas. The right kidney is normal in size. No hydronephrosis, shadowing calculi, or suspicious mass lesion. Simple cyst in the right kidney is stable. Infrarenal abdominal aortic aneurysm measuring 2.3 cm is better seen on yesterday's CT. IMPRESSION: 1. No cholelithiasis or biliary obstruction. 2. No common bile duct stone by ultrasound. Dictated by: Dictated on workstation # [id number]
[2023-03-11 11:33] VITALS: BP 130/71
[2023-03-11] MEDS ORDERED: TMSL.4C PO (12:16)
--- NOTE | 2023-03-11 15:05 | Diagnostic Imaging Report ---
EXAMINATION: MRI of the abdomen with and without contrast. TECHNIQUE: Multiplanar, multisequence MR images of the abdomen were obtained with and without intravenous contrast. HISTORY: Pancreatic mass. COMPARISON: CT abdomen and pelvis of 03/10/2023. FINDINGS: Liver: No suspicious liver lesions. No steatosis. No surface nodularity. A subcentimeter benign cyst is present in the dome of the liver, segment VIII. Ducts: No intrahepatic biliary duct dilatation. The common bile duct is normal in caliber measuring 4 mm and has no filling defects. At the level of the pancreatic head, there is mild narrowing of the common bile duct but there does not appear to be flow-limiting stenosis. The main pancreatic duct is dilated measuring 5 mm. There is a filling defect in the main pancreatic duct near the level of the ampulla from a 6 mm pancreatic duct stone. This corresponds to the stone seen on CT. Gallbladder: Normal. Pancreas: The pancreas enhances homogeneously. There is no abnormal enhancement at the level of the pancreatic head to suggest pancreatic adenocarcinoma. No inflammatory changes around the pancreas. Spleen: Normal. Adrenals: Both adrenal nodules show signal dropout on opposed-phase imaging, indicating these are benign adenomas. Kidneys: No suspicious lesions. No hydronephrosis. Bilateral simple renal cysts are stable. Bowel: Normal. Other: No lymphadenopathy. Visualized portions of the thorax are normal. Partially imaged infrarenal aortic aneurysm is unchanged since prior exam. IMPRESSION: 1. No pancreatic head mass to suggest adenocarcinoma. Additionally, there are no features of acute pancreatitis. 2. There is a 6 mm stone in the pancreatic duct at the level of the ampulla and the main pancreatic duct is diffusely dilated. 3. No stone within the common bile duct. Dictated by: Dictated on workstation # [id number]
[2023-03-11 16:01] VITALS: BP 139/73
[2023-03-11] MEDS: ENOXAPARIN 40 MG/0.4 ML SYRINGE SC SCH (17:53)
[2023-03-11 19:53] VITALS: BP 133/68
[2023-03-12] VITALS (7 sets, daily range): BP systolic 124–187; BP diastolic 65–85
[2023-03-12] MEDS: NS IV 1000 ML 1,000 ML IV SCH ×2 (00:07→06:43)
[2023-03-12 05:41] LABS: BASOPHILS # (AUTO) 0.1 10^3/uL (0.0-0.1); BASOPHILS % (AUTO) 1 % (0-10); EOSINOPHILS # (AUTO) 0.2 10^3/uL (0.0-0.3); EOSINOPHILS % (AUTO) 3 % (0-10); HEMATOCRIT 36 % (40-54); HEMOGLOBIN 11.9 g/dL (13.3-17.7); LYMPHOCYTES # (AUTO) 1.6 10^3/uL (1.0-4.0); LYMPHOCYTES % (AUTO) 24 % (12-44); MEAN CORPUSCULAR HEMOGLOBIN 29 pg (25-34); MEAN CORPUSCULAR HGB CONC 33 g/dL (32-36); MEAN CORPUSCULAR VOLUME 89 fL (80-99); MEAN PLATELET VOLUME 10.3 fL (9.0-12.2); MONOCYTES # (AUTO) 0.5 10^3/uL (0.0-1.0); MONOCYTES % (AUTO) 8 % (0-12); NEUTROPHILS # (AUTO) 4.3 10^3/uL (1.8-7.8); NEUTROPHILS % (AUTO) 64 % (42-75); PLATELET COUNT 199 10^3/uL (130-400); WHITE BLOOD COUNT 6.7 10^3/uL (4.3-11.0)
[2023-03-12] MEDS: inSUlin ASPART 1 UNIT/0.01 ML (PER UNIT) SC SCH ×4 (06:02→20:57)
[2023-03-12 06:09] LABS: ALBUMIN 3.2 GM/DL (3.2-4.5); BILIRUBIN,TOTAL 0.6 MG/DL (0.1-1.0); CALCIUM 8.3 MG/DL (8.5-10.1); CREATININE SERUM 0.79 MG/DL (0.60-1.30); POTASSIUM 3.7 MMOL/L (3.6-5.0); TOTAL PROTEIN 5.3 GM/DL (6.4-8.2)
--- NOTE | 2023-03-12 06:51 | Progress Note - Surgery ---
LIA GRACE 03/12/23 0651: Subjective Time Seen by a Provider: 06:42 Subjective/Events-last exam Pt states that he has not woken up in the night with pain. He denies having any pain currently. He is NPO. The last time he ate or drank anything was Friday morning he says. He only complains about the bed being uncomfortable. Review of Systems General: No Chills; Fatigue (pt states due to not eating) HEENT: No Head Aches, No Visual Changes, No Eye Pain Pulmonary: Cough (intermittent) Cardiovascular: No: Chest Pain, Palpitations Gastrointestinal: No: Nausea, Vomiting, Abdominal Pain Neurological: No: Numbness Focused Exam Respiratory: Chest Non Tender, Lungs Clear, Normal Breath Sounds, No Accessory Muscle Use, No Respiratory Distress Cardiovascular: Regular Rate, Rhythm, No Murmur Objective Exam Vital Signs Date Time Temp Pulse Resp B/P (MAP) Pulse Ox O2 Delivery O2 Flow Rate FiO2 03/12/23 03:21 37.0 45 16 158/76 (103) 96 Room Air 03/12/23 01:18 37 03/12/23 01:00 59 03/12/23 00:02 37.2 61 16 124/65 (84) 95 Room Air 03/11/23 22:51 37.2 03/11/23 22:08 96 Room Air 03/11/23 19:53 37.2 47 16 133/68 (89) 96 Room Air 03/11/23 19:00 42 03/11/23 16:01 36.8 52 16 139/73 (95) 96 Room Air 03/11/23 13:00 47 03/11/23 11:33 36.6 56 18 130/71 (90) 97 Room Air 03/11/23 08:00 96 Room Air 03/11/23 07:20 36.6 52 19 125/70 (88) 96 Room Air 03/11/23 07:00 49 03/11/23 06:53 94 Room Air I & O 03/12/23 07:00 Intake Total 1480 ml Output Total 1150 ml Balance 330 ml Capillary Refill : Less Than 3 Seconds General Appearance: No Apparent Distress HEENT: PERRL/EOMI; No Photophobia, No Scleral Icterus (L), No Scleral Icterus (R) Peripheral Pulses: 2+ Carotid (R), 2+ Carotid (L), 2+ Dorsalis Pedis (R), 2+ Left Dors-Pedis (L), 2+ Radial Pulses (R), 2+ Radial Pulses (L) Gastrointestinal: normal bowel sounds, non tender, soft; No guarding, No rebound; hernia (incarcerated umbilical hernia) Neurologic/Psychiatric: Alert, Oriented x3, No Motor/Sensory Deficits, Normal Mood/Affect Skin: Normal Color, Warm/Dry Results Lab Laboratory Tests 03/11/23 11:31: Glucometer 79 03/11/23 15:36: Glucometer 78 03/11/23 20:34: Glucometer 75 03/12/23 05:14: White Blood Count 6.7, Red Blood Count 4.09L, Hemoglobin 11.9L, Hematocrit 36L, Mean Corpuscular Volume 89, Mean Corpuscular Hemoglobin 29, Mean Corpuscular Hemoglobin Concent 33, Red Cell Distribution Width 14.1, Platelet Count 199, Mean Platelet Volume 10.3, Immature Granulocyte % (Auto) 0, Neutrophils (%) (Auto) 64, Lymphocytes (%) (Auto) 24, Monocytes (%) (Auto) 8, Eosinophils (%) (Auto) 3, Basophils (%) (Auto) 1, Neutrophils # (Auto) 4.3, Lymphocytes # (Auto) 1.6, Monocytes # (Auto) 0.5, Eosinophils # (Auto) 0.2, Basophils # (Auto) 0.1, Immature Granulocyte # (Auto) 0.0, Sodium Level 139, Potassium Level 3.7, Chloride Level 110H, Carbon Dioxide Level 20L, Anion Gap 9, Blood Urea Nitrogen 16, Creatinine 0.79, Estimat Glomerular Filtration Rate 94, BUN/Creatinine Ratio 20, Glucose Level 64L, Calcium Level 8.3L, Corrected Calcium 8.9, Total Bilirubin 0.6, Aspartate Amino Transf (AST/SGOT) 18, Alanine Aminotransferase (ALT/SGPT) 13, Alkaline Phosphatase 75, Total Protein 5.3L, Albumin 3.2, Lipase 173H 03/12/23 05:45: Glucometer 69L Assessment/Plan Assessment/Plan Assessment/Plan Acute Pancreatitis Incarcerated Umbilical Hernia Will continue monitoring labs, lipase has decreased to 173. Pt will continue being NPO until I discuss the results with the surgeon. Pt is now aware of his hernia. No action plan for this currently. ERAN JAMES DO 03/12/23 1251: Subjective Time Seen by a Provider: 12:34 Subjective/Events-last exam Pt seen and examined, states his pain is gone and when he had the clears, "I had a BM". He wants more food. Review of Systems HEENT: No Head Aches, No Eye Pain Pulmonary: Cough (intermittent) Cardiovascular: No: Chest Pain, Palpitations Gastrointestinal: No: Nausea, Vomiting, Abdominal Pain Objective Exam General Appearance: No Apparent Distress HEENT: PERRL/EOMI; No Scleral Icterus (L), No Scleral Icterus (R) Respiratory: Lungs Clear, Normal Breath Sounds, No Accessory Muscle Use, No Respiratory Distress Cardiovascular: Regular Rate, Rhythm, No Murmur Gastrointestinal: non tender, soft, hernia (incarcerated umbilical hernia) Neurologic/Psychiatric: Alert, Oriented x3 Assessment/Plan Assessment/Plan Assessment/Plan Acute Pancreatitis - resolved Incarcerated Umbilical Hernia Will continue monitoring labs, lipase has decreased to 173. Pt was started on clears and did not have any pain; will increase to regular diet and hopefully home tomorrow if he tolerates increase; with no pain and no change in lipase. I spoke with Hemmer Lockstitch; he recommends treating this as outpt. Supervisory-Addendum Brief Verification & Attestation Participated in pt care: history, MDM, physical Personally performed: exam, history, MDM, supervision of care Care discussed with: Medical Student Procedures: n/a Verification and Attestation of Medical Student E/M Service A medical student performed and documented this service. I then reviewed and verified all information documented by the medical student and made modifications to such information, when appropriate. I personally performed a physical exam, medical decision making and then discussed any differences between the notes and made revisions as necessary to create one note. Eran James , 03/12/23 , 12:51 LIA GRACE Mar 12, 2023 06:51 ERAN JAMES DO Mar 12, 2023 12:51
[2023-03-12] MEDS: PANTOPRAZOLE 40 MG (PROTONIX) VIAL IV SCH (08:21)
[2023-03-12] MEDS: DOCUSATE SODIUM 100 MG CAPSULE PO SCH ×2 (09:33→20:33)
[2023-03-12] MEDS: D5 NS 1,000 ML IV SOLN 1,000 ML IV SCH ×3 (11:21→23:06)
--- NOTE | 2023-03-12 14:48 | Progress Note ---
RENETTA BREWER 03/12/23 1448: Subjective Date Seen by a Provider: Mar 12, 2023 Time Seen by a Provider: 10:30 Subjective/Events-last exam 72-year-old male with pancreatitis is currently having no pain and did not experience any pain last night. Patient is still very hungry and irritated due to not eating since last Friday morning. He is still NPO but surgery is looking to get him on a regular diet soon. Patient reported he had some dizziness whenever he would go to lay his head down, believing it was due to his low blood sugar. He was also informed by surgery this morning that he had a hernia of which he was not aware of. Review of Systems General: No Chills, No Night Sweats; Fatigue; No Malaise, No Appetite, No Other HEENT: No Head Aches, No Eye Pain, No Ear Pain, No Dysphasia, No Sinus Congestion, No Post Nasal Drip, No Sore Throat Pulmonary: No Dyspnea; Cough; No Pleuritic Chest Pain, No Other Cardiovascular: No: Chest Pain, Palpitations, Orthopnea, Paroxysmal Noc. Dyspnea, Edema, Lt Headedness Gastrointestinal: No: Nausea, Vomiting, Abdominal Pain, Diarrhea, Constipation, Melena, Hematochezia Genitourinary: No Dysuria, No Frequency, No Incontinence, No Hematuria, No Retention Musculoskeletal: No: other, neck pain, shoulder pain, arm pain, back pain, hand pain, leg pain, foot pain Neurological: No: Weakness, Numbness, Incoordination, Change in speech, Confusion, Seizures, Other Objective Exam Last Set of Vital Signs Vital Signs Date Time Temp Pulse Resp B/P (MAP) Pulse Ox O2 Delivery O2 Flow Rate FiO2 03/12/23 13:18 47 03/12/23 11:28 37.0 18 164/77 (106) 95 Room Air 03/12/23 08:27 0.00 03/10/23 19:07 21 Capillary Refill : Less Than 3 Seconds I&O Intake and Output 03/12/23 00:00 Intake Total 1680 ml Output Total 1200 ml Balance 480 ml Intake Oral 680 ml IV Total 1000 ml Output Urine Total 1200 ml # Voids 1 # Bowel Movements 1 General: Alert, Oriented X3, Cooperative, No Acute Distress HEENT: PERRLA, EOMI, Mucous Memb Moist/[place] Heart: Regular Rate, No Murmurs Neuro: Normal Speech, Normal Tone Psych/Mental Status: Mental Status NL Results Lab Laboratory Tests 03/11/23 15:36: Glucometer 78 03/11/23 20:34: Glucometer 75 03/12/23 05:14: White Blood Count 6.7, Red Blood Count 4.09L, Hemoglobin 11.9L, Hematocrit 36L, Mean Corpuscular Volume 89, Mean Corpuscular Hemoglobin 29, Mean Corpuscular Hemoglobin Concent 33, Red Cell Distribution Width 14.1, Platelet Count 199, Mean Platelet Volume 10.3, Immature Granulocyte % (Auto) 0, Neutrophils (%) (Auto) 64, Lymphocytes (%) (Auto) 24, Monocytes (%) (Auto) 8, Eosinophils (%) (Auto) 3, Basophils (%) (Auto) 1, Neutrophils # (Auto) 4.3, Lymphocytes # (Auto) 1.6, Monocytes # (Auto) 0.5, Eosinophils # (Auto) 0.2, Basophils # (Auto) 0.1, Immature Granulocyte # (Auto) 0.0, Sodium Level 139, Potassium Level 3.7, Chloride Level 110H, Carbon Dioxide Level 20L, Anion Gap 9, Blood Urea Nitrogen 16, Creatinine 0.79, Estimat Glomerular Filtration Rate 94, BUN/Creatinine Ratio 20, Glucose Level 64L, Calcium Level 8.3L, Corrected Calcium 8.9, Total Bilirubin 0.6, Aspartate Amino Transf (AST/SGOT) 18, Alanine Aminotransferase (ALT/SGPT) 13, Alkaline Phosphatase 75, Total Protein 5.3L, Albumin 3.2, Lipase 173H 03/12/23 05:45: Glucometer 69L 03/12/23 10:28: Glucometer 62L Assessment/Plan Assessment/Plan Assess & Plan/Chief Complaint Assessment: Acute pancreatitis Patient experienced a PSVT today Incarcerated hernia H/o multiple kidney stones with stent placement & stent removal Plan: Consult cardiology for PSVT D5-NS IV fluid NPO status change to clear liquid per surgery Monitor lipase ANA NOE DO 03/12/23 2018: Supervisory-Addendum Brief Verification & Attestation Participated in pt care: history, MDM, physical Personally performed: exam, history, MDM, supervision of care Care discussed with: Medical Student Procedures: n/a Results interpretation: Verified all documentation Verification and Attestation of Medical Student E/M Service A medical student performed and documented this service in my presence. I reviewed and verified all information documented by the medical student and made modifications to such information, when appropriate. I personally performed the physical exam and medical decision making. Ana Noe, Mar 12, 2023,20:17 RENETTA BREWER Mar 12, 2023 14:48 ANA NOE DO Mar 12, 2023 20:18
[2023-03-12] MEDS: ENOXAPARIN 40 MG/0.4 ML SYRINGE SC SCH (17:39)
--- NOTE | 2023-03-12 18:38 | Consultation-Cardiology ---
HPI-Cardiology Cardiology Consultation: Date of Consultation 03/12/23 Time Seen by a Provider: 18:15 Date of Admission Attending Physician Tayler Xie Aprn Admitting Physician Admitting Physician: Ana Olivera DO Attending Physician: Ana Olivera DO Consulting Physician JAMES ROJAS MD, MA, FACP, FACC, FSCAI, CCDS Physician requesting consult: Dr Olivera HPI: Chief Complaint: Reason for Card consult: SVT 72 yo man admitted to Dr Olivera's sv[facility] on 03/10/23 with acute pancreatitis. This has since improved. He had presented with abd pain that has now resolved. He denies cp or palp or syncope or shortness of breath. He does not currently report n/v/d. He was found to have brief runs of SVT (up to 6 beats in length) on tele for which Dr Olivera asked us to see him. Review of Systems-Cardiology Review of Systems Constitutional: No malaise, No weight loss, No weight gain Eyes: No vision change Ears/Nose/Throat: No ear discharge, No nasal drainage, No recent hearing loss Respiratory: As described under HPI Cardiovascular: As described under HPI Gastrointestinal: As described under HPI Genitourinary: No dysuria, No hematuria; other (h/o renal stones and temporary ureteric stents); No urine frequency changes Musculoskeletal: No back pain, No joint pain Skin: No rash, No ulcerations Psychiatric/Neurological: No seizure, No focal weakness, No syncope Hematologic: No bleeding abnormalities [id number] Hx Patient Social History Marrital Status: Employed/Student: retired Smoking Status: Former Smoker (3/4 a pack for 50 years. Quit in November,.) 2nd Hand Smoke Exposure: No Alcohol Use?: No Pt feels they are or have been: No Past Medical History PMH As described under Assessment. Family Medical History Family Medical History: He does not report fam h/o early CAD or SCD Allergies and Home Medications Allergies Coded Allergies: Penicillins (Verified Allergy, Unknown, 03/11/23) Mother and Father were allergic to it. He states he has not had it since a child due to the adverse rxn Patient Home Medication List Home Medication List Reviewed: Yes Tamsulosin HCl (Flomax) 0.4 Mg Cap, 0.4 MG PO DAILY, (Reported) Entered as Reported by: ROSSY ACEVEDO on 03/11/23 1216 Last Action: Continued Physical Exam-Cardiology Physical Exam Vital Signs/I&O 03/12/23 03/12/23 03/12/23 03/12/23 07:37 07:54 08:00 08:27 Temp 36.7 Pulse 41 42 Resp 16 B/P (MAP) 132/70 (90) Pulse Ox 97 94 94 O2 Delivery Room Air Room Air Room Air O2 Flow Rate 0.00 03/12/23 03/12/23 03/12/23 03/12/23 10:58 11:28 13:18 15:51 Temp 37.0 37.8 Pulse 77 64 47 54 Resp 18 16 B/P (MAP) 164/77 (106) 164/82 (109) Pulse Ox 95 96 O2 Delivery Room Air Room Air 03/11/23 23:59 Intake Total 1480 ml Output Total 850 ml Balance 630 ml Capillary Refill : Less Than 3 Seconds Constitutional: AAO x 3, well-developed, well-nourished HEENT: other (edentulous jaws), EOMI, hearing is well preserved; No xanthelasmas are seen Neck: carotid pulses are 2 + bilaterally, with good upstrokes Respiratory: No accessory muscle use; chest expansion is symmetric, chest is bilaterally symmetric, other (good, bilateral air entry) Gastrointestinal: No tender; soft; No guarding, No rebound; audible bowel sounds Extremities: No clubbing, No cyanosis, No significant edema Neurologic/Psychiatric: oriented x 3, other (moves all limbs equally) Skin: normal color, warm/dry; No cyanosis, No cool, No diaphoresis, No rash on exposed areas, No ulcerations on exposed areas Lymphatic: no adenopathy (neck, axilla or groin) Data Review Labs Laboratory Tests 03/11/23 20:34: Glucometer 75 03/12/23 05:14: White Blood Count 6.7, Red Blood Count 4.09L, Hemoglobin 11.9L, Hematocrit 36L, Mean Corpuscular Volume 89, Mean Corpuscular Hemoglobin 29, Mean Corpuscular Hemoglobin Concent 33, Red Cell Distribution Width 14.1, Platelet Count 199, Mean Platelet Volume 10.3, Immature Granulocyte % (Auto) 0, Neutrophils (%) (Auto) 64, Lymphocytes (%) (Auto) 24, Monocytes (%) (Auto) 8, Eosinophils (%) (Auto) 3, Basophils (%) (Auto) 1, Neutrophils # (Auto) 4.3, Lymphocytes # (Auto) 1.6, Monocytes # (Auto) 0.5, Eosinophils # (Auto) 0.2, Basophils # (Auto) 0.1, Immature Granulocyte # (Auto) 0.0, Sodium Level 139, Potassium Level 3.7, Chloride Level 110H, Carbon Dioxide Level 20L, Anion Gap 9, Blood Urea Nitrogen 16, Creatinine 0.79, Estimat Glomerular Filtration Rate 94, BUN/Creatinine Ratio 20, Glucose Level 64L, Calcium Level 8.3L, Corrected Calcium 8.9, Total Bilirubin 0.6, Aspartate Amino Transf (AST/SGOT) 18, Alanine Aminotransferase (ALT/SGPT) 13, Alkaline Phosphatase 75, Total Protein 5.3L, Albumin 3.2, Lipase 173H 03/12/23 05:45: Glucometer 69L 03/12/23 10:28: Glucometer 62L 03/12/23 15:38: Glucometer 105 Laboratory Tests 03/11/23 05:10 03/12/23 05:14 A/P-Cardiology Assessment/Admission Diagnosis Brief episode of SVT (up to 6 beats at rates of approx 110 - 120 bpm) asympto matic Pancreatitis Discussion and Recomendations * No specific recommendation for brief, asymptomatic SVT (up to 6 beat with rates 110-120 bpm) seen during acute pancreatitis * Outpt cardiac f/u advised JAMES ROJAS MD FACP [facility] Mar 12, 2023 18:38
[2023-03-12] MEDS: oxyCODONE IMMEDIATE RELEASE 5 MG TABLET PO PRN (22:35)
[2023-03-13] VITALS (7 sets, daily range): BP systolic 100–195; BP diastolic 64–93
[2023-03-13] MEDS: D5 NS 1,000 ML IV SOLN 1,000 ML IV SCH ×2 (01:56→10:10)
[2023-03-13 05:34] LABS: BASOPHILS # (AUTO) 0.1 10^3/uL (0.0-0.1); BASOPHILS % (AUTO) 1 % (0-10); EOSINOPHILS # (AUTO) 0.1 10^3/uL (0.0-0.3); EOSINOPHILS % (AUTO) 2 % (0-10); HEMATOCRIT 37 % (40-54); HEMOGLOBIN 12.4 g/dL (13.3-17.7); LYMPHOCYTES # (AUTO) 1.7 10^3/uL (1.0-4.0); LYMPHOCYTES % (AUTO) 29 % (12-44); MEAN CORPUSCULAR HEMOGLOBIN 30 pg (25-34); MEAN CORPUSCULAR HGB CONC 34 g/dL (32-36); MEAN CORPUSCULAR VOLUME 88 fL (80-99); MEAN PLATELET VOLUME 10.4 fL (9.0-12.2); MONOCYTES # (AUTO) 0.5 10^3/uL (0.0-1.0); MONOCYTES % (AUTO) 9 % (0-12); NEUTROPHILS # (AUTO) 3.4 10^3/uL (1.8-7.8); NEUTROPHILS % (AUTO) 58 % (42-75); PLATELET COUNT 201 10^3/uL (130-400); WHITE BLOOD COUNT 5.8 10^3/uL (4.3-11.0)
[2023-03-13 05:54] LABS: ALBUMIN 3.2 GM/DL (3.2-4.5); BILIRUBIN,TOTAL 0.6 MG/DL (0.1-1.0); CALCIUM 8.2 MG/DL (8.5-10.1); CREATININE SERUM 0.83 MG/DL (0.60-1.30); POTASSIUM 3.3 MMOL/L (3.6-5.0); TOTAL PROTEIN 5.4 GM/DL (6.4-8.2)
[2023-03-13] MEDS: inSUlin ASPART 1 UNIT/0.01 ML (PER UNIT) SC SCH ×2 (06:12→11:37)
--- NOTE | 2023-03-13 07:12 | Progress Note - Surgery ---
LIA GRACE 03/13/23 0712: Subjective Time Seen by a Provider: 07:10 Subjective/Events-last exam Pt states he is not having any abdominal pain. He had a grilled chicken sandwich last night around 18:30. He denies having any pain after this meal. He had a soft BM two hours after his meal, he denies it being diarrhea. No blood in the stool. He is not feeling nauseous. He is very eager to go home. Review of Systems General: No Chills, No Night Sweats; Fatigue HEENT: No Head Aches, No Visual Changes, No Eye Pain, No Ear Pain Pulmonary: Cough Cardiovascular: No: Chest Pain, Palpitations Gastrointestinal: No: Nausea, Vomiting, Abdominal Pain, Diarrhea, Constipation Neurological: No: Weakness, Numbness, Change in speech Objective Exam Vital Signs Date Time Temp Pulse Resp B/P (MAP) Pulse Ox O2 Delivery O2 Flow Rate FiO2 03/13/23 03:34 36.8 41 16 160/69 (99) 97 Room Air 03/13/23 01:00 40 03/12/23 23:03 37.1 51 18 151/67 (95) 96 Room Air 03/12/23 20:27 95 Room Air 03/12/23 19:47 37.0 50 17 158/74 (102) 96 Room Air 03/12/23 19:35 Room Air 03/12/23 19:00 50 03/12/23 15:51 37.8 54 16 164/82 (109) 96 Room Air 03/12/23 13:18 47 03/12/23 11:28 37.0 64 18 164/77 (106) 95 Room Air 03/12/23 10:58 77 03/12/23 08:27 94 Room Air 0.00 03/12/23 08:00 94 Room Air 03/12/23 07:54 42 03/12/23 07:37 36.7 41 16 132/70 (90) 97 Room Air I & O 03/13/23 06:59 Intake Total 4440 ml Output Total 1925 ml Balance 2515 ml Capillary Refill : Less Than 3 Seconds General Appearance: No Apparent Distress HEENT: PERRL/EOMI; No Scleral Icterus (L), No Scleral Icterus (R) Respiratory: Lungs Clear, Normal Breath Sounds, No Accessory Muscle Use, No Respiratory Distress Cardiovascular: Regular Rate, Rhythm, No Murmur Peripheral Pulses: 2+ Carotid (R), 2+ Carotid (L), 2+ Dorsalis Pedis (R), 2+ Left Dors-Pedis (L), 2+ Radial Pulses (R), 2+ Radial Pulses (L) Gastrointestinal: non tender, soft, hernia (incarcerated umbilical hernia) Neurologic/Psychiatric: Alert, Oriented x3 Skin: Normal Color, Warm/Dry Results Lab Laboratory Tests 03/12/23 10:28: Glucometer 62L 03/12/23 15:38: Glucometer 105 03/12/23 20:54: Glucometer 104 03/13/23 05:21: White Blood Count 5.8, Red Blood Count 4.21L, Hemoglobin 12.4L, Hematocrit 37L, Mean Corpuscular Volume 88, Mean Corpuscular Hemoglobin 30, Mean Corpuscular Hemoglobin Concent 34, Red Cell Distribution Width 14.0, Platelet Count 201, Sparkle n Platelet Volume 10.4, Immature Granulocyte % (Auto) 0, Neutrophils (%) (Auto) 58, Lymphocytes (%) (Auto) 29, Monocytes (%) (Auto) 9, Eosinophils (%) (Auto) 2, Basophils (%) (Auto) 1, Neutrophils # (Auto) 3.4, Lymphocytes # (Auto) 1.7, Monocytes # (Auto) 0.5, Eosinophils # (Auto) 0.1, Basophils # (Auto) 0.1, Immature Granulocyte # (Auto) 0.0, Sodium Level 140, Potassium Level 3.3L, Chloride Level 111H, Carbon Dioxide Level 22, Anion Gap 7, Blood Urea Nitrogen 12, Creatinine 0.83, Estimat Glomerular Filtration Rate 93, BUN/Creatinine Ratio 14, Glucose Level 137H, Calcium Level 8.2L, Corrected Calcium 8.8, Total Bilirubin 0.6, Aspartate Amino Transf (AST/SGOT) 48H, Alanine Aminotransferase (ALT/SGPT) 29, Alkaline Phosphatase 86, Total Protein 5.4L, Albumin 3.2, Lipase 54 Assessment/Plan Assessment/Plan Assessment/Plan Assessment: Acute pancreatitis Incarcerated hernia H/o multiple kidney stones with stent placement & stent removal Plan: Lipase levels were down to 54 this morning. Continue to monitor. Continue clear fluids and slowly increasing to normal diet. Will discuss with surgeon about discharge and scheduling ERCP with GI. ERAN JAMES DO 03/13/23 1008: Subjective Time Seen by a Provider: 09:47 Subjective/Events-last exam Pt seen and examined, no changes and denies abdominal pain. Review of Systems Pulmonary: Cough Cardiovascular: No: Chest Pain, Palpitations Gastrointestinal: No: Nausea, Vomiting, Abdominal Pain Objective Exam General Appearance: No Apparent Distress HEENT: PERRL/EOMI Respiratory: Lungs Clear, Normal Breath Sounds, No Accessory Muscle Use, No Respiratory Distress Cardiovascular: Regular Rate, Rhythm, No Murmur Gastrointestinal: non tender, soft, no organomegaly, hernia (incarcerated umbilical hernia) Assessment/Plan Assessment/Plan Assessment/Plan Acute pancreatitis - resolved Incarcerated hernia H/o multiple kidney stones with stent placement & stent removal Plan: Lipase levels were down to 54 this morning. OK to d/c home per surgery and I will see pt in clinic and help set up ERCP with GI. Supervisory-Addendum Brief Verification & Attestation Participated in pt care: history, MDM, physical Personally performed: exam, history, MDM, supervision of care Care discussed with: Medical Student Procedures: n/a Verification and Attestation of Medical Student E/M Service A medical student performed and documented this service. I then reviewed and verified all information documented by the medical student and made modifications to such information, when appropriate. I personally performed a physical exam, medical decision making and then discussed any differences between the notes and made revisions as necessary to create one note. Eran James , 03/13/23 , 10:08 LIA GRACE Mar 13, 2023 07:12 ERAN JAMES DO Mar 13, 2023 10:08
[2023-03-13] MEDS ORDERED: TAMSULOSIN 0.4 MG (FLOMAX) CAP PO SCH (09:00)
[2023-03-13] MEDS: PANTOPRAZOLE 40 MG (PROTONIX) VIAL IV SCH (09:24)
[2023-03-13] MEDS: DOCUSATE SODIUM 100 MG CAPSULE PO SCH (09:24)
--- NOTE | 2023-03-13 10:06 | Discharge Inst-Surgical ---
Discharge Inst-Surgical Depart Medication/Instructions Patient Instructions Follow up Appt: Make appointment for 1 week. [phone] [address] [facility], [address] Symptoms to Report: Appetite Changes, Extremity Discoloration, Numbness/Tingling, Swelling Increased, Bleeding Excessive, Eyesight Changes, Pain Increased, Urine Color Change, Constipation(Persistent), Fever over 101 degree F, Pain/Pressure in chest, Urinating Difficulty, Cough Up/Vomit Blood, Heart Beat Irreg/Pounding, Pain/Pressure in jaw, Cramps in feet or legs, Lightheadedness, Pain/Pressure in shoulder, Diarrhea(Persistent), Memory Changes Suddenly, Questions/Concerns, Weight gain consecutive days, Dizziness/Fainting, Nausea/Vomiting, Shortness of Breath, Weight gain over 2 pounds If questions or concerns contact your physician Or seek help at emergency department. Activity Activity as Tolerated: Yes Diet Discharge Diet: Eat Small Frequent Meals Diet After 24 Hours: Clear Liquid if Nauseous If Any Problems/Questions/Issu: Contact Your Physician, Go to Emergency Room Skin/Wound Care Infection Signs and Symptoms: Increased Swelling, Temperature Above 101 F Bathing Instructions: ZULEYKA Ruiz DO Mar 13, 2023 10:06
--- NOTE | 2023-03-13 11:12 | Discharge Summary ---
Diagnosis/Chief Complaint Date of Admission Mar 12, 2023 at 09:18 Date of Discharge Discharge Date: Mar 13, 2023 Discharge Diagnosis Assessment: Acute pancreatitis Patient experienced a PSVT today Incarcerated hernia H/o multiple kidney stones with stent placement & stent removal Discharge Summary Discharge Physical Examination Allergies: Coded Allergies: Penicillins (Verified Allergy, Unknown, 03/11/23) Mother and Father were allergic to it. He states he has not had it since a child due to the adverse rxn Vitals & I&Os Vital Signs Date Time Temp Pulse Resp B/P (MAP) Pulse Ox O2 Delivery O2 Flow Rate FiO2 03/13/23 13:42 36.3 82 18 155/93 98 Room Air 0.00 03/10/23 19:07 21 General Appearance: Alert, Oriented X3, Cooperative Respiratory: Clear to Auscultation Cardiovascular: Regular Rate Psych/Mental Status: Mental Status NL Hospital Course Was the Problem List Reviewed?: Yes Hospital course: 72-year-old male presented with epigastric/back pain and nausea. He has never experienced anything like this pain before and has a history of multiple kidney stones with stent placement and had the stent removed 2 weeks ago. Abdominal/pelvis CT showed bilateral renal cysts & small cysts in the liver, bilateral adrenal nodules, and prominence of the pancreatic duct with possible pancreatic duct stone. CT also found a nonruptured abdominal aortic aneurysm measuring 3.7 cm in greatest diameter. An MRCP showed a 6 mm stone in the pancreatic duct at the level of the ampulla and diffusely dilated main pancreatic duct. Lipase was found to be >3,000. Patient was admitted with acute pancreatitis and started on IV fluids and NPO status. During his hospital stay, patient's lipase began to decrease and he was able to be cleared for a solid diet and reported no pain after eating solid food. Patient did experience a brief PSVT (up to 6 beat with rates 110-120 bpm) during his stay and was consulted by cardiology. His lipase levels were 54 the morning of discharge and he will be set up with a GI for an ERCP. Labs (last 24 hrs) Laboratory Tests 03/10/23 14:58: White Blood Count 8.5, Red Blood Count 5.21, Hemoglobin 15.3, Hematocrit 45, Mean Corpuscular Volume 87, Mean Corpuscular Hemoglobin 29, Mean Corpuscular Hemoglobin Concent 34, Red Cell Distribution Width 14.0, Platelet Count 255, Mean Platelet Volume 9.4, Immature Granulocyte % (Auto) 0, Neutrophils (%) (Auto) 73, Lymphocytes (%) (Auto) 19, Monocytes (%) (Auto) 6, Eosinophils (%) (Auto) 1, Basophils (%) (Auto) 1, Neutrophils # (Auto) 6.2, Lymphocytes # (Auto) 1.6, Monocytes # (Auto) 0.5, Eosinophils # (Auto) 0.1, Basophils # (Auto) 0.1, Immature Granulocyte # (Auto) 0.0, Sodium Level 140, Potassium Level 4.2, Chloride Level 102, Carbon Dioxide Level 24, Anion Gap 14, Blood Urea Nitrogen 17, Creatinine 0.89, Estimat Glomerular Filtration Rate 91, BUN/Creatinine Ratio 19, Glucose Level 120H, Calcium Level 9.7, Corrected Calcium 9.6, Total Bilirubin 0.4, Aspartate Amino Transf (AST/SGOT) 19, Alanine Aminotransferase (ALT/SGPT) 17, Alkaline Phosphatase 123, Troponin I < 0.30, Total Protein 6.9, Albumin 4.1, Lipase > 3000H 03/10/23 16:15: Urine Color YELLOW, Urine Clarity CLEAR, Urine pH 6.5, Urine Specific [place] 1.020, Urine Protein NEGATIVE, Urine Glucose (UA) NEGATIVE, Urine Ketones 1+H, Urine Nitrite NEGATIVE, Urine Bilirubin NEGATIVE, Urine Urobilinogen 0.2, Urine Leukocyte Esterase NEGATIVE, Urine RBC (Auto) TRACE-IH, Urine RBC 2-5H, Urine WBC 2-5, Urine Squamous Epithelial Cells RARE, Urine Crystals NONE, Urine Bacteria NEGATIVE, Urine Casts NONE, Urine Mucus MODERATEH, Urine Culture Indicated NO 03/10/23 20:23: Glucometer 97 03/11/23 05:10: White Blood Count 8.1, Red Blood Count 4.40, Hemoglobin 12.9L, Hematocrit 39L, Mean Corpuscular Volume 89, Mean Corpuscular Hemoglobin 29, Mean Corpuscular Hemoglobin Concent 33, Red Cell Distribution Width 14.2, Platelet Count 219, Mean Platelet Volume 10.1, Immature Granulocyte % (Auto) 0, Neutrophils (%) (Auto) 70, Lymphocytes (%) (Auto) 19, Monocytes (%) (Auto) 8, Eosinophils (%) (Auto) 2, Basophils (%) (Auto) 1, Neutrophils # (Auto) 5.7, Lymphocytes # (Auto) 1.6, Monocytes # (Auto) 0.7, Eosinophils # (Auto) 0.2, Basophils # (Auto) 0.1, Immature Granulocyte # (Auto) 0.0, Sodium Level 139, Potassium Level 3.6, Chloride Level 109H, Carbon Dioxide Level 23, Anion Gap 7, Blood Urea Nitrogen 15, Creatinine 0.78, Estimat Glomerular Filtration Rate 95, BUN/Creatinine Ratio 19, Glucose Level 89, Calcium Level 8.5, Corrected Calcium 9.0, Total Bilirubin 0.7, Aspartate Amino Transf (AST/SGOT) 14, Alanine Aminotransferase (ALT/SGPT) 14, Alkaline Phosphatase 84, Total Protein 5.7L, Albumin 3.4, Lipase 1906H 03/11/23 05:16: Glucometer 92 03/11/23 11:31: Glucometer 79 03/11/23 15:36: Glucometer 78 03/11/23 20:34: Glucometer 75 03/12/23 05:14: White Blood Count 6.7, Red Blood Count 4.09L, Hemoglobin 11.9L, Hematocrit 36L, Mean Corpuscular Volume 89, Mean Corpuscular Hemoglobin 29, Mean Corpuscular Hemoglobin Concent 33, Red Cell Distribution Width 14.1, Platelet Count 199, Mean Platelet Volume 10.3, Immature Granulocyte % (Auto) 0, Neutrophils (%) (Auto) 64, Lymphocytes (%) (Auto) 24, Monocytes (%) (Auto) 8, Eosinophils (%) (Auto) 3, Basophils (%) (Auto) 1, Neutrophils # (Auto) 4.3, Lymphocytes # (Auto) 1.6, Monocytes # (Auto) 0.5, Eosinophils # (Auto) 0.2, Basophils # (Auto) 0.1, Immature Granulocyte # (Auto) 0.0, Sodium Level 139, Potassium Level 3.7, Chloride Level 110H, Carbon Dioxide Level 20L, Anion Gap 9, Blood Urea Nitrogen 16, Creatinine 0.79, Estimat Glomerular Filtration Rate 94, BUN/Creatinine Ratio 20, Glucose Level 64L, Calcium Level 8.3L, Corrected Calcium 8.9, Total Bilirubin 0.6, Aspartate Amino Transf (AST/SGOT) 18, Alanine Aminotransferase (ALT/SGPT) 13, Alkaline Phosphatase 75, Total Protein 5.3L, Albumin 3.2, Lipase 173H 03/12/23 05:45: Glucometer 69L 03/12/23 10:28: Glucometer 62L 03/12/23 15:38: Glucometer 105 03/12/23 20:54: Glucometer 104 03/13/23 05:21: White Blood Count 5.8, Red Blood Count 4.21L, Hemoglobin 12.4L, Hematocrit 37L, Mean Corpuscular Volume 88, Mean Corpuscular Hemoglobin 30, Mean Corpuscular Hemoglobin Concent 34, Red Cell Distribution Width 14.0, Platelet Count 201, Mean Platelet Volume 10.4, Immature Granulocyte % (Auto) 0, Neutrophils (%) (Auto) 58, Lymphocytes (%) (Auto) 29, Monocytes (%) (Auto) 9, Eosinophils (%) (Auto) 2, Basophils (%) (Auto) 1, Neutrophils # (Auto) 3.4, Lymphocytes # (Auto) 1.7, Monocytes # (Auto) 0.5, Eosinophils # (Auto) 0.1, Basophils # (Auto) 0.1, Immature Granulocyte # (Auto) 0.0, Sodium Level 140, Potassium Level 3.3L, Chloride Level 111H, Carbon Dioxide Level 22, Anion Gap 7, Blood Urea Nitrogen 12, Creatinine 0.83, Estimat Glomerular Filtration Rate 93, BUN/Creatinine Ratio 14, Glucose Level 137H, Calcium Level 8.2L, Corrected Calcium 8.8, Total Bilirubin 0.6, Aspartate Amino Transf (AST/SGOT) 48H, Alanine Aminotransferase (ALT/SGPT) 29, Alkaline Phosphatase 86, Total Protein 5.4L, Albumin 3.2, Lipase 54 03/13/23 10:48: Glucometer 130H Pending Labs Laboratory Tests 03/10/23 14:58: White Blood Count 8.5, Red Blood Count 5.21, Hemoglobin 15.3, Hematocrit 45, Mean Corpuscular Volume 87, Mean Corpuscular Hemoglobin 29, Mean Corpuscular Hemoglobin Concent 34, Red Cell Distribution Width 14.0, Platelet Count 255, Mean Platelet Volume 9.4, Immature Granulocyte % (Auto) 0, Neutrophils (%) (Auto) 73, Lymphocytes (%) (Auto) 19, Monocytes (%) (Auto) 6, Eosinophils (%) (Auto) 1, Basophils (%) (Auto) 1, Neutrophils # (Auto) 6.2, Lymphocytes # (Auto) 1.6, Monocytes # (Auto) 0.5, Eosinophils # (Auto) 0.1, Basophils # (Auto) 0.1, Immature Granulocyte # (Auto) 0.0, Sodium Level 140, Potassium Level 4.2, Chloride Level 102, Carbon Dioxide Level 24, Anion Gap 14, Blood Urea Nitrogen 17, Creatinine 0.89, Estimat Glomerular Filtration Rate 91, BUN/Creatinine Ratio 19, Glucose Level 120, Calcium Level 9.7, Corrected Calcium 9.6, Total Bilirubin 0.4, Aspartate Amino Transf (AST/SGOT) 19, Alanine Aminotransferase (ALT/SGPT) 17, Alkaline Phosphatase 123, Troponin I < 0.30, Total Protein 6.9, Albumin 4.1, Lipase > 3000 03/10/23 16:15: Urine Color YELLOW, Urine Clarity CLEAR, Urine pH 6.5, Urine Specific [place] 1.020, Urine Protein NEGATIVE, Urine Glucose (UA) NEGATIVE, Urine Ketones 1+, Urine Nitrite NEGATIVE, Urine Bilirubin NEGATIVE, Urine Urobilinogen 0.2, Urine Leukocyte Esterase NEGATIVE, Urine RBC (Auto) TRACE-I, Urine RBC 2-5, Urine WBC 2-5, Urine Squamous Epithelial Cells RARE, Urine Crystals NONE, Urine Bacteria NEGATIVE, Urine Casts NONE, Urine Mucus MODERATE, Urine Culture Indicated NO 03/10/23 20:23: Glucometer 97 03/11/23 05:10: White Blood Count 8.1, Red Blood Count 4.40, Hemoglobin 12.9, Hematocrit 39, Mean Corpuscular Volume 89, Mean Corpuscular Hemoglobin 29, Mean Corpuscular Hemoglobin Concent 33, Red Cell Distribution Width 14.2, Platelet Count 219, Mean Platelet Volume 10.1, Immature Granulocyte % (Auto) 0, Neutrophils (%) (Auto) 70, Lymphocytes (%) (Auto) 19, Monocytes (%) (Auto) 8, Eosinophils (%) (Auto) 2, Basophils (%) (Auto) 1, Neutrophils # (Auto) 5.7, Lymphocytes # (Auto) 1.6, Monocytes # (Auto) 0.7, Eosinophils # (Auto) 0.2, Basophils # (Auto) 0.1, Immature Granulocyte # (Auto) 0.0, Sodium Level 139, Potassium Level 3.6, Chloride Level 109, Carbon Dioxide Level 23, Anion Gap 7, Blood Urea Nitrogen 15, Creatinine 0.78, Estimat Glomerular Filtration Rate 95, BUN/Creatinine Ratio 19, Glucose Level 89, Calcium Level 8.5, Corrected Calcium 9.0, Total Bilirubin 0.7, Aspartate Amino Transf (AST/SGOT) 14, Alanine Aminotransferase (ALT/SGPT) 14, Alkaline Phosphatase 84, Total Protein 5.7, Albumin 3.4, Lipase 1906 03/11/23 05:16: Glucometer 92 03/11/23 11:31: Glucometer 79 03/11/23 15:36: Glucometer 78 03/11/23 20:34: Glucometer 75 03/12/23 05:14: White Blood Count 6.7, Red Blood Count 4.09, Hemoglobin 11.9, Hematocrit 36, Mean Corpuscular Volume 89, Mean Corpuscular Hemoglobin 29, Mean Corpuscular Hemoglobin Concent 33, Red Cell Distribution Width 14.1, Platelet Count 199, Mean Platelet Volume 10.3, Immature Granulocyte % (Auto) 0, Neutrophils (%) (Auto) 64, Lymphocytes (%) (Auto) 24, Monocytes (%) (Auto) 8, Eosinophils (%) (Auto) 3, Basophils (%) (Auto) 1, Neutrophils # (Auto) 4.3, Lymphocytes # (Auto) 1.6, Monocytes # (Auto) 0.5, Eosinophils # (Auto) 0.2, Basophils # (Auto) 0.1, Immature Granulocyte # (Auto) 0.0, Sodium Level 139, Potassium Level 3.7, Chloride Level 110, Carbon Dioxide Level 20, Anion Gap 9, Blood Urea Nitrogen 16, Creatinine 0.79, Estimat Glomerular Filtration Rate 94, BUN/Creatinine Ratio 20, Glucose Level 64, Calcium Level 8.3, Corrected Calcium 8.9, Total Bilirubin 0.6, Aspartate Amino Transf (AST/SGOT) 18, Alanine Aminotransferase (ALT/SGPT) 13, Alkaline Phosphatase 75, Total Protein 5.3, Albumin 3.2, Lipase 173 03/12/23 05:45: Glucometer 69 03/12/23 10:28: Glucometer 62 03/12/23 15:38: Glucometer 105 03/12/23 20:54: Glucometer 104 03/13/23 05:21: White Blood Count 5.8, Red Blood Count 4.21, Hemoglobin 12.4, Hematocrit 37, Mean Corpuscular Volume 88, Mean Corpuscular Hemoglobin 30, Mean Corpuscular Hemoglobin Concent 34, Red Cell Distribution Width 14.0, Platelet Count 201, Mean Platelet Volume 10.4, Immature Granulocyte % (Auto) 0, Neutrophils (%) (Auto) 58, Lymphocytes (%) (Auto) 29, Monocytes (%) (Auto) 9, Eosinophils (%) (Auto) 2, Basophils (%) (Auto) 1, Neutrophils # (Auto) 3.4, Lymphocytes # (Auto) 1.7, Monocytes # (Auto) 0.5, Eosinophils # (Auto) 0.1, Basophils # (Auto) 0.1, Immature Granulocyte # (Auto) 0.0, Sodium Level 140, Potassium Level 3.3, Chloride Level 111, Carbon Dioxide Level 22, Anion Gap 7, Blood Urea Nitrogen 12, Creatinine 0.83, Estimat Glomerular Filtration Rate 93, BUN/Creatinine Ratio 14, Glucose Level 137, Calcium Level 8.2, Corrected Calcium 8.8, Total Bilirubin 0.6, Aspartate Amino Transf (AST/SGOT) 48, Alanine Aminotransferase (ALT/SGPT) 29, Alkaline Phosphatase 86, Total Protein 5.4, Albumin 3.2, Lipase 54 03/13/23 10:48: Glucometer 130 Discharge Home Medications: Active Scripts Active Reported Flomax (Tamsulosin HCl) 0.4 Mg Cap 0.4 Mg PO DAILY TAKES 30 MINUTES AFTER MEAL Instructions to patient/family Please see electronic discharge instructions given to patient. SHANNAN NOE DO Mar 13, 2023 11:12
--- NOTE | 2023-03-13 12:44 | Progress Note - Cardiology ---
Cardiology SOAP Progress Note Subjective: No shortness of breath No palp or cp or syncope No leg swelling No n/v/d No focal weakness Objective: I&O/Vital Signs 03/13/23 03/13/23 03/13/23 03/13/23 01:00 03:34 07:18 07:44 Temp 36.8 36.7 Pulse 40 41 46 53 Resp 16 18 B/P (MAP) 160/69 (99) 195/90 (125) Pulse Ox 97 95 O2 Delivery Room Air Room Air 03/13/23 03/13/23 03/13/23 03/13/23 08:30 11:04 11:07 11:11 Temp 36.5 36.8 36.5 Pulse 95 70 55 Resp 18 16 16 B/P (MAP) 125/80 (95) 155/86 (109) 100/64 (76) Pulse Ox 96 O2 Delivery Room Air Room Air Room Air Room Air 03/13/23 11:16 Temp 36.3 Pulse 82 Resp 18 B/P (MAP) 155/93 (113) Pulse Ox 98 O2 Delivery Room Air 03/13/23 00:00 Intake Total 2590 ml Output Total 1250 ml Balance 1340 ml Constitutional: AAO x 3, well-developed, well-nourished Respiratory: No accessory muscle use; chest expansion is symmetric, chest is bilaterally symmetric, other (good, bilateral air entry) Gastrointestional: No tender; soft; No guarding, No rebound; audible bowel sounds Extremities: No clubbing, No cyanosis, No significant edema Neurologic/Psychiatric: oriented x 3, other (moves all limbs equally) Skin: normal color, warm/dry; No cyanosis, No cool, No diaphoresis, No rash on exposed areas, No ulcerations on exposed areas Results/Procedures: Labs Laboratory Tests 03/12/23 15:38: Glucometer 105 03/12/23 20:54: Glucometer 104 03/13/23 05:21: White Blood Count 5.8, Red Blood Count 4.21L, Hemoglobin 12.4L, Hematocrit 37L, Mean Corpuscular Volume 88, Mean Corpuscular Hemoglobin 30, Mean Corpuscular Hemoglobin Concent 34, Red Cell Distribution Width 14.0, Platelet Count 201, Mean Platelet Volume 10.4, Immature Granulocyte % (Auto) 0, Neutrophils (%) (Auto) 58, Lymphocytes (%) (Auto) 29, Monocytes (%) (Auto) 9, Eosinophils (%) (Auto) 2, Basophils (%) (Auto) 1, Neutrophils # (Auto) 3.4, Lymphocytes # (Auto) 1.7, Monocytes # (Auto) 0.5, Eosinophils # (Auto) 0.1, Basophils # (Auto) 0.1, Immature Granulocyte # (Auto) 0.0, Sodium Level 140, Potassium Level 3.3L, Chloride Level 111H, Carbon Dioxide Level 22, Anion Gap 7, Blood Urea Nitrogen 12, Creatinine 0.83, Estimat Glomerular Filtration Rate 93, BUN/Creatinine Ratio 14, Glucose Level 137H, Calcium Level 8.2L, Corrected Calcium 8.8, Total Bilirubin 0.6, Aspartate Amino Transf (AST/SGOT) 48H, Alanine Aminotransferase (ALT/SGPT) 29, Alkaline Phosphatase 86, Total Protein 5.4L, Albumin 3.2, Lipase 54 03/13/23 10:48: Glucometer 130H Laboratory Tests 03/12/23 05:14 03/13/23 05:21 A/P: Assessment: Brief episode of SVT (up to 6 beats at rates of approx 110 - 120 bpm) asymptomatic Pancreatitis Mild hypokalemia on 03-13-23 (Dr Olivera managing) Plan: * No specific recommendation for brief, asymptomatic SVT (up to 6 beat with rates 110-120 bpm) seen during acute pancreatitis * Outpt cardiac f/u advised JAMES ROJAS MD [facility] Mar 13, 2023 12:44
--- NOTE | 2023-03-13 13:40 | Progress Note ---
RENETTA BREWER 03/13/23 1340: Progress Note Hospital course: 72-year-old male presented with epigastric/back pain and nausea. He has never experienced anything like this pain before and has a history of multiple kidney stones with stent placement and had the stent removed 2 weeks ago. Abdominal/pelvis CT showed bilateral renal cysts & small cysts in the liver, bilateral adrenal nodules, and prominence of the pancreatic duct with possible pancreatic duct stone. CT also found a nonruptured abdominal aortic aneurysm measuring 3.7 cm in greatest diameter. An MRCP showed a 6 mm stone in the pancreatic duct at the level of the ampulla and diffusely dilated main pancreatic duct. Lipase was found to be >3,000. Patient was admitted with acute pancreatitis and started on IV fluids and NPO status. During his hospital stay, patient's lipase began to decrease and he was able to be cleared for a solid diet and reported no pain after eating solid food. Patient did experience a brief PSVT (up to 6 beat with rates 110-120 bpm) during his stay and was consulted by cardiology. His lipase levels were 54 the morning of discharge and he will be set up with a GI for an ERCP. ANA NOE DO 03/13/23 2207: Supervisory-Addendum Brief Verification & Attestation Participated in pt care: history, MDM, physical Personally performed: exam, history, MDM, supervision of care Care discussed with: Medical Student Procedures: n/a Results interpretation: Verified all documentation Verification and Attestation of Medical Student E/M Service A medical student performed and documented this service in my presence. I reviewed and verified all information documented by the medical student and made modifications to such information, when appropriate. I personally performed the physical exam and medical decision making. Ana Noe Mar 13, 2023,22:07 RENETTA BREWER Mar 13, 2023 13:40 ANA NOE DO Mar 13, 2023 22:07
== END 2023-03-13 12:56 | disposition home or self-care (01) | DRG 439 ==
LOC: ER FS 14:26 → 4TH 18:00 → OBSVTOIN 03-12 09:18
PROVIDERS: ADMIT Internal Medicine; ATTEND Internal Medicine
DX: K85.90 Acute pancreatitis without necrosis or infection, unspecified (principal); I47.1 Supraventricular tachycardia; K42.0 Umbilical hernia with obstruction, without gangrene; Z87.891 Personal history of nicotine dependence; E87.6 Hypokalemia
CPT/HCPCS: 36415; 71045; 74177; 74183; 76705; 80053; 81000; 82947; 83690; 84484; 85025; 93005; 93306; 94760; G0378; Q9967